=== PATIENT | female | born 1960 | race Caucasian/White ===

== ENCOUNTER 2023-08-16 02:49 | Emergency (ER) | payer MEDICARE, MEDICAID, SELFPAY ==
[2023-08-16 02:50] VITALS: BP 90/53; PULSE 71; RESP 16; TEMP 36.1; O2SAT 90; BMI 16.5
--- NOTE | 2023-08-16 03:24 | RAD_ITS ---
EXAM: XR LUMBOSACRAL SPINE, 2 OR 3 VIEWS CLINICAL INDICATION: pain pain TECHNIQUE: Frontal and lateral views of the lumbar spine and sacrum. COMPARISON: No relevant prior studies available. FINDINGS: VERTEBRAE: There is multilevel spondylosis. There are degenerative changes of the facet joints at the L3-4, L4-5, and L5-S1 levels. Preserved vertebral body height. No fracture. Preservation of the normal lumbar lordosis. DISC SPACES: There is disc space narrowing at each level of the spine with the exception of the L3-4 level.. GASTROINTESTINAL TRACT: Unremarkable as visualized. Included bowel gas pattern is non-obstructive. RAD/Lumbar Spine 2 or 3 Views IMPRESSION: 1. Multilevel degenerative changes. 2. No demonstrated fracture or subluxation. Electronically Signed: Oscar Hua MD at 6:06 EDT Reading Location ID and State: [facility] / [place] , Service support ,
--- NOTE | 2023-08-16 03:24 | CT_ITS ---
EXAM: CT HEAD WITHOUT INTRAVENOUS CONTRAST CLINICAL INDICATION: injury injury TECHNIQUE: Multiple axial images were obtained of the head without intravenous contrast. This CT exam was performed using one or more of the following dose reduction techniques: automated exposure control, adjustment of the mA and/or kV according to patient size, and/or use of iterative reconstruction technique. RADIATION DOSE: CTDIvol = 44.99 mGy, DLP = 796.11 mGy-cm COMPARISON: No relevant prior studies available. FINDINGS: BRAIN AND EXTRA-AXIAL SPACES: Unremarkable. No intra- or extra-axial hemorrhage. No evidence of acute infarct. No intracranial mass or mass effect. There is preservation of the cunningham/white matter interface. Posterior fossa structures are unremarkable. Ventricles are appropriate for age. No hydrocephalus. Basal cisterns are patent. BONES/JOINTS: Unremarkable. No discrete lytic or blastic abnormalities. VASCULATURE: There is atherosclerotic calcification of the cavernous carotid arteries. SINUSES: There is mild mucosal thickening in bilateral ethmoid and left sphenoid sinuses consistent with chronic disease. There is no evidence for acute sinusitis. MASTOID AIR CELLS: Unremarkable. Clear. ORBITS: Visualized globes, extraocular muscles, optic nerves and retrobulbar fat appear unremarkable. CT/Brain/Head without Contrast IMPRESSION: No demonstrated acute intracranial process. Electronically Signed: Oscar Hua MD at 5:55 EDT Reading Location ID and State: [facility] / [place] , Service support ,
--- NOTE | 2023-08-16 03:24 | CT_ITS ---
EXAM: CT CERVICAL SPINE WITHOUT INTRAVENOUS CONTRAST CLINICAL INDICATION: injury injury TECHNIQUE: Helically acquired images were obtained of the cervical spine without intravenous contrast. 2D reformatted images were reviewed. This CT exam was performed using one or more of the following dose reduction techniques: automated exposure control, adjustment of the mA and/or kV according to patient size, and/or use of iterative reconstruction technique. RADIATION DOSE: CTDIvol = 11.79 mGy, DLP = 281.86 mGy-cm COMPARISON: No relevant prior studies available. FINDINGS: VERTEBRAE: There is multilevel spondylosis. No fracture. No traumatic subluxation. No discrete lytic or blastic abnormality. Normal alignment. Normal craniocervical junction and cervicothoracic junction. DISCS/SPINAL CANAL/NEURAL FORAMINA: There are multilevel degenerative changes of the uncovertebral joints and apophyseal joints. There is multilevel disc space narrowing. C2-3: No demonstrated stenosis. C3-4: Broad posterior disc protrusion. There is mild spinal stenosis with central canal AP diameter of 9 mm. C4-5: Moderate stenosis bilateral neural foramina. C5-6: Small broad posterior disc osteophyte complex. No demonstrated spinal stenosis. Moderate stenosis right and severe stenosis left neural foramina. C6-7: No demonstrated stenosis. C7-T1: No demonstrated stenosis. SOFT TISSUES: Unremarkable. No prevertebral soft tissue swelling. LYMPH NODES: Unremarkable. No cervical adenopathy. LUNG APICES: Unremarkable as visualized. Clear. ESOPHAGUS: There is material within the cervical esophagus and visualized upper thoracic esophagus. This may represent dysmotility, reflux, or obstruction. CT/Spine Cervical without Contras IMPRESSION: 1. Multilevel degenerative changes. 2. No demonstrated fracture or subluxation. 3. Material within the visualized esophagus may be due to reflux, dysmotility, or distal obstruction. Electronically Signed: Oscar Hua MD at 6:04 EDT Reading Location ID and State: [facility] / [place] , Service support ,
--- NOTE | 2023-08-16 03:24 | RAD_ITS ---
EXAM: XR THORACIC SPINE, 3 VIEWS CLINICAL INDICATION: pain pain TECHNIQUE: Frontal, lateral and swimmer''s views of the thoracic spine. COMPARISON: No relevant prior studies available. FINDINGS: VERTEBRAE: There is multilevel spondylosis. Preserved vertebral body height. No fracture. Preservation of the normal thoracic kyphosis. No significant facet arthropathy. DISC SPACES: There is multilevel disc space narrowing. RAD/Thoracic Spine 3 Views IMPRESSION: 1. Degenerative changes. 2. No demonstrated fracture or subluxation. Electronically Signed: Oscar Hua MD at 6:11 EDT Reading Location ID and State: [facility] / [place] , Service support ,
[2023-08-16] MEDS: Morphine 4 MG/ML Syringe IV (03:51)
[2023-08-16] MEDS: Ondansetron 4 MG/2 ML Vial IV (03:51)
--- NOTE | 2023-08-16 04:15 | RAD_ITS ---
EXAM: XR PELVIS, 1 OR 2 VIEWS CLINICAL INDICATION: pain pain TECHNIQUE: Frontal view of the pelvis. COMPARISON: No relevant prior studies available. FINDINGS: BONES/JOINTS: There is a mild to moderate degenerative arthrosis of the hips, left greater than right. No displaced fracture. No destructive or sclerotic lesions. Note that overlapping bowel shadows may however obscure fine detail. Sacroiliac joints are unremarkable. No widening of the pubic symphysis. SOFT TISSUES: Unremarkable. No soft tissue swelling or gas. RAD/Pelvis 1 or 2 Views IMPRESSION: Degenerative arthrosis of the hips. No demonstrated fracture, dislocation, or destructive osseous lesion. Electronically Signed: Oscar Hua MD at 6:09 EDT Reading Location ID and State: [facility] / [place] , Service support ,
[2023-08-16 04:49] VITALS: BP 89/54; PULSE 71; RESP 16; O2SAT 99
[2023-08-16 06:00] VITALS: BP 98/62; PULSE 72; RESP 16; O2SAT 96
--- NOTE | 2023-08-16 06:18 | EDS_ITS ---
HPI History of Present Illness Chief Complaint: Fall Informant: patient and EMS Narrative Narrative: Patient is a 62-year-old female from home with past medical history of asthma and chronic back pain. She states that she went downstairs this evening to make a peanut butter and jelly sandwich and then as she was walking back up the stairs her legs gave out causing her to fall down the stairs and strike her head. She states she suffered transient LOC with this. She denies any history of bleeding disorder or blood thinner use. She reports pain in her head and throughout her back and with concern she may have sustained an injury she presents for evaluation. [facility] Medical History (Updated 08/17/23 @ 01:[address] Morteza Paige, DO) Back injury Asthma Home Medications ?Medication ?Instructions ?Recorded ?Last Taken ?Type oxycodone-acetaminophen 5 mg-325 1 tab PO Q6H PRN pain 3 days #12 08/16/23 Unknown Rx mg tablet (Percocet) tabs Allergy/AdvReac Type Severity Reaction Status Date / Time NSAIDS (Non-Steroidal Allergy Anaphylaxis Verified 08/16/23 02:55 Anti-Inflamma Penicillins (PCN) Allergy Anaphylaxis Verified 08/16/23 02:55 Social History Smoking Status: Current every day smoker tobacco type: cigarettes ROS ROS ED Constitutional Constitutional ED: Denies chills or fever(s) Eyes Eyes: Denies blurry vision, change in vision or diplopia ENT ENT ED: Denies sore throat Cardiovascular Cardiovascular: Denies chest pain, palpitations or racing heartbeat Respiratory/Chest Respiratory/Chest: Denies cough or dyspnea Gastrointestinal Gastrointestinal: Denies abdominal pain, diarrhea, nausea or vomiting Genitourinary Genitourinary ED: Denies dysuria or hematuria Musculoskeletal Musculoskeletal: Reports back pain and neck pain Integumentary Reports Abrasions; Denies rash Neurologic Neurologic: Reports headache(s) and other Details: Positive LOC Hematologic/Lymphatic Hematologic/Lymphatic: Denies easy bleeding or easy bruising EXAM Physical Exam Const Vital Signs: 08/16/23 02:50 08/16/23 02:56 08/16/23 04:49 Temperature 97 F L Temperature Source Temporal Pulse Rate 71 71 Respiratory Rate 16 16 Respiratory Effort Normal Blood Pressure 90/53 L 89/54 L Blood Pressure Mean 65 65 Pulse Ox 90 99 Oxygen Delivery Method Room Air Nasal Cannula Oxygen Flow Rate (L/min) 2 08/16/23 06:00 08/16/23 06:35 Temperature 97 F L Temperature Source Pulse Rate 72 75 Respiratory Rate 16 16 Respiratory Effort Blood Pressure 98/62 94/52 L Blood Pressure Mean 74 66 Pulse Ox 96 96 Oxygen Delivery Method Room Air Oxygen Flow Rate (L/min) Positive well nourished and well developed General Appearance ED: well developed HEENT HEENT Narrative: Patient has a 2 x 3 hematoma to the occipital portion of the scalp consistent with fall/head injury. No sustained laceration. No signs of depressed or basilar skull fracture. No septal hematoma Eyes PERRL and EOMs intact bilaterally Eyes Narrative: No hyphema Neck supple Neck Narrative: No bony deformity or step-off of the cervical spine however there is mild midline tenderness to palpation Chest Wall palpation of chest normal Chest Narrative: No bony deformity or crepitance of the chest wall Resp normal respiratory effort Resp Narrative: Breath sounds are diminished throughout with faint expiratory wheeze consistent with history of asthma but otherwise no signs of respiratory distress Cardio regular rate and regular rhythm GI non-tender, non-distended and no masses GI Narrative: Abdomen is soft nontender and nondistended with hypoactive bowel sounds There is no bruising across the abdomen No voluntary guarding or rigidity or pulsatile mass Auscultation: hypoactive bowel sounds Palpation: soft Back/Spine Back/Spine Narrative: No bony deformity or step-off of the thoracic or lumbar spine the patient does have diffuse midline pain with palpation to both the thoracic and lumbar region No saddle anesthesia. Negative straight leg raise. No clonus or Babinski. Patellar reflexes are plus 1 out of 4 bilaterally Extremity Extremity Narrative: Pelvis is stable there is no shortening or external rotation of either lower extremity No obvious bony deformity or joint effusions noted Patient has full active range of motion of both upper and lower extremities. Neuro oriented x3, CN's II-XII intact bilaterally and no sensory deficits noted Sensorium / Orientation: alert Motor Exam: strength 5/5 throughout Psych mental status grossly normal Skin Skin Narrative: Hematoma to the occipital scalp as documented above otherwise no abrasions or lacerations noted MDM MDM MDM Narrative Medical decision making narrative: Patient presented to the ER awake and alert with normal neurologic exam. She reported a mechanical fall and therefore there is no need for cardiac or syncope workup. As she did strike her head and has a hematoma in the occipital region there is concern for skull fracture versus subdural or epidural hematoma. Pain throughout the cervical thoracic and lumbar spine there is concern for compression fracture versus spinal thesis and therefore CTs and x-rays will be obtained. Secondary to the fall a pelvis x-ray will be ordered as well as there is concern for pubic rami fracture. All imaging revealed no signs of acute trauma. Therefore at this time as patient has a negative workup secondary to her fall/trauma and it was mechanical in nature and there is no need for laboratory studies to assess for potential acute blood loss or electrolyte abnor mality or cardiac dysfunction she is otherwise safe for discharge History & Record Review Discussion w/independent historian: EMS personnel and Patient Radiography Diagnostic Testing: Clinical Impression(s) from Imaging Studies Brain CT 08/16/23 03:24 IMPRESSION: No demonstrated acute intracranial process. Electronically Signed: Oscar Hua MD at 5:55 EDT , Cervical Spine CT 08/16/23 03:24 IMPRESSION: 1. Multilevel degenerative changes. 2. No demonstrated fracture or subluxation. 3. Material within the visualized esophagus may be due to reflux, dysmotility, or distal obstruction. Electronically Signed: Oscar Hua MD at 6:04 EDT , Lumbar Spine X-Ray 08/16/23 03:24 IMPRESSION: 1. Multilevel degenerative changes. 2. No demonstrated fracture or subluxation. Electronically Signed: Oscar Hua MD at 6:06 EDT , Thoracic Spine X-Ray 08/16/23 03:24 IMPRESSION: 1. Degenerative changes. 2. No demonstrated fracture or subluxation. Electronically Signed: Oscar Hua MD at 6:11 EDT , Pelvis X-Ray 08/16/23 04:15 IMPRESSION: Degenerative arthrosis of the hips. No demonstrated fracture, dislocation, or destructive osseous lesion. Electronically Signed: Oscar Hua MD at 6:09 EDT , 1 view pelvis x-ray as interpreted by the emergency medicine physician reveals arthritic changes without acute fracture or dislocation X-ray of the thoracic and lumbar spine as interpreted by the emergency medicine physician reveals multilevel degenerative changes without compression fracture or spondylolisthesis Discharge Plan Triage Chief Complaint: Fall ED Provider: Morteza Paige Dx/Rx/DC Orders Clinical Impression: Closed head injury, Hematoma of occipital region of scalp, Contusion of multiple sites, Asthma Instructions: ED Soft Tissue Contusion, ED Head Injury (Adult), ED Hematoma Prescriptions: New oxycodone-acetaminophen [Percocet] 5-325 mg tablet 1 tab PO Q6H PRN (Reason: pain) 3 Days Qty: 12 0RF Primary Care Provider: ROLO MONROE Referrals: ROLO MONROE [Other] Activity Restrictions/Additional Instructions: Your CT scans and x-rays revealed no signs of brain bleed broken neck or broken bones indicating you have multiple contusions. Take the prescribed medication to help control pain and ice and/or heat the areas to help reduce pain and speed healing. Return to the ER should you have any further concerns Print Language: Bulgarian Disposition Disposition: Home, Self Care Discharge Date/Time: 08/16/23 07:51
[2023-08-16 06:35] VITALS: BP 94/52; PULSE 75; RESP 16; TEMP 36.1; O2SAT 96
--- NOTE | 2023-08-16 06:35 | ED.RN ---
Patient reports she cannot ambulate without her cane or rollator and she doesn't have any family or friends that can transport her. [facility] call for wheelchair transport due to not having assistive devices.
--- NOTE | 2023-08-16 06:36 | NURSING ---
CALLED [facility], ETA IS WITHIN THE HOUR
[2023-08-16] MEDS: oxyCODONE 5 MG Tablet PO (06:38)
== END 2023-08-16 07:51 | disposition home or self-care (01) ==
PROVIDERS: Emergency Provider Emergency Medicine; Visit Provider Emergency Medicine
DX: S00.03XA Contusion of scalp, initial encounter (principal); J45.909 Unspecified asthma, uncomplicated; F17.210 Nicotine dependence, cigarettes, uncomplicated; W10.9XXA Fall (on) (from) unspecified stairs and steps, initial encounter; S09.90XA Unspecified injury of head, initial encounter; T14.8XXA Other injury of unspecified body region, initial encounter
CPT/HCPCS: 70450; 72072; 72100; 72125; 72170; 96374; 96375; 99283; A4216; J2405

== ENCOUNTER 2023-11-19 23:13 | Observation (INO) | payer MEDICARE, MEDICAID, SELFPAY ==
[2023-11-19 23:14] VITALS: BP 105/62; PULSE 95; RESP 18; TEMP 37.1; O2SAT 98; BMI 16.4
--- NOTE | 2023-11-19 23:50 | EKG12_ITS ---
Test Reason : FALL Blood Pressure : / mmHG Vent. Rate : 075 BPM Atrial Rate : 075 BPM P-R Int : 136 ms QRS Dur : 092 ms QT Int : 422 ms P-R-T Axes : 081 086 068 degrees QTc Int : 471 ms Normal sinus rhythm Normal ECG Confirmed by TANNA CALHOUN, KOJO ([id number]), assistant editor MARY MUÑIZ ([id number]) on 11/23/2023 7:28:31 AM Referred By: Confirmed By:KOJO CISSE MD
[2023-11-20] VITALS (14 sets, daily range): BP systolic 79–107; BP diastolic 52–61; PULSE 63–77; RESP 12–20; TEMP 36.5–37.2; O2SAT 85–100; BMI 15.4
[2023-11-20] MEDS: Ondansetron 4 MG/2 ML Vial IV
[2023-11-20] MEDS: 0.9% Normal Saline (1000mL) 1,000 ML 999 ML IV
--- NOTE | 2023-11-20 00:26 | ED.VIS.FALL ---
HPI HPI - Fall History of Present Illness Chief Complaint: Fall Narrative Narrative: Patient is a 63-year-old female past medical history of asthma, chronic back pain, hypercholesteremia, hypothyroidism who presented to the emergency department with a chief complaint of falling down approximately 7 stairs. States that the past 3 days she has had dizziness and she states that she was dizzy right before she fell. Patient states that she does not have a history of vertigo and has not had any think this happened in the past. Patient states that she did hit her head but states that she did not pass out she remembers the entire event. States that she has having increasing back pain from her chronic back pain but denies any other new pain. [facility] Medical History Back injury Asthma Home Medications ?Medication ?Instructions ?Recorded ?Last Taken ?Type oxycodone-acetaminophen 5 mg-325 1 tab PO Q6H PRN pain 3 days #12 08/16/23 Unknown Rx mg tablet (Percocet) tabs atorvastatin 20 mg tablet 20 mg PO DAILY 11/19/23 Unknown History azelastine 137 mcg (0.1 %) nasal 1 spray intranasal BID 11/19/23 Unknown History spray clonazepam 2 mg tablet 2 mg PO TID PRN PRN anxiety 11/19/23 Unknown History epinephrine 0.3 mg/0.3 mL IM PRN PRN anaphylaxis 11/19/23 Unknown History injection, auto-injector ergocalciferol (vitamin D2) 1,250 1,250 mcg PO QWEEK 11/19/23 Unknown History mcg (50,000 unit) capsule escitalopram oxalate 20 mg tablet 20 mg PO DAILY 11/19/23 Unknown History gabapentin 400 mg capsule 400 mg PO TID 11/19/23 Unknown History levothyroxine 88 mcg tablet 88 mcg PO DAILY 11/19/23 Unknown History mirtazapine 30 mg tablet 30 mg PO QHS 11/19/23 Unknown History multivitamin-iron sulfate 15 1 tab PO DAILY 11/19/23 Unknown History mg-folic acid 400 mcg tablet (Tab-A-Massiel Multivitamin w-iron) omega-3 acid ethyl esters 1 gram 1 cap PO DAILY 11/19/23 Unknown History capsule oxycodone 40 mg tablet,extended 40 mg PO TID 11/19/23 Unknown History release,12 hr pantoprazole 40 mg tablet,delayed 40 mg PO DAILY 11/19/23 Unknown History release zolpidem 5 mg tablet 5 mg PO QHS insomnia 11/19/23 Unknown History Allergy/AdvReac Type Severity Reaction Status Date / Time NSAIDS (Non-Steroidal Allergy Anaphylaxis Verified 11/19/23 23:14 Anti-Inflamma Penicillins (PCN) Allergy Anaphylaxis Verified 11/19/23 23:14 Social History Smoking Status: Current every day smoker tobacco type: cigarettes ROS ROS ED ROS Narrative Constitutional: Complains of dizziness as noted above denies headache, lightheadedness Eyes: Denies double vision blurry vision change in vision Cardiovascular: Denies chest pain or palpitations Respiratory: Denies coughing wheezing shortness of breath Abdomen: Denies abdominal pain nausea vomit diarrhea : Denies any urinary symptoms Neurological: Denies numbness, weakness, tingling Musculoskeletal: Complains of back pain as noted above Skin: Denies rashes or lesions EXAM Physical Exam Narrative Exam Narrative: General: Patient lying in bed rest comfortably did not appear to be in acute distress Head: Atraumatic, normocephalic Eyes: PERRL bilateral, EOMI bilaterally, no conjunctival injection noted, no vertical or horizontal nystagmus noted on exam Neck: Soft, supple, trachea midline, no midline tenderness to palpation of the cervical spine Cardiovascular: Regular rate and rhythm no murmurs gallops rubs noted Respiratory: Clear to auscultation bilaterally no rales rhonchi or wheezes noted Abdomen: Soft, nondistended, nontender to palpation, bowel sounds present x 4 Musculoskeletal: Patient had some tenderness palpation in the right wrist, elbow and near her right shoulder she states that she has a bad shoulder from a rotator cuff tear. All of the bony prominences palpated and joints taken through full range of motion no pain elicited Extremities: Patient has bilateral lower extremity weakness unable to lift either her legs off the bed secondary to her back pain she states DP pulses +2/4 in the bilateral extremities, radial pulses +2/4 in the bilateral upper extremities Neurological: Patient following commands knew that she was at [facility] the year is 2023. Sensation grossly intact Skin: Warm, dry, intact Const Vital Signs: 11/19/23 23:14 11/19/23 23:14 11/20/23 01:14 Temperature 98.8 F Temperature Source Oral Pulse Rate 95 77 Respiratory Rate 18 12 Respiratory Effort Normal Non-Labored Respiratory Depth Normal Respiratory Pattern Normal Blood Pressure 105/62 90/61 Blood Pressure Mean 76 70 Pulse Ox 98 96 Oxygen Delivery Method Room Air Room Air 11/20/23 02:22 Temperature 98.5 F Temperature Source Pulse Rate 75 Respiratory Rate 18 Respiratory Effort Respiratory Depth Respiratory Pattern Blood Pressure 103/57 L Blood Pressure Mean 72 Pulse Ox 97 Oxygen Delivery Method MDM MDM MDM Narrative Medical decision making narrative: Patient is a 63-year-old female who presented to the emergency department with a chief complaint of fall down multiple stairs. Patient will have a workup performed here on the differential diagnose includes but limited to thoracic spine fracture, lumbar fracture, intracranial hemorrhage, vertigo, stroke, electrolyte abnormality. Once workup is obtained reviewed she will be reevaluated. Patient be given IV fluids for hydration. Patient CBC reviewed and showed no evidence leukocytosis white blood count normal at 9.4, hemoglobin stable at 12.5, platelet count normal at 293. Patient's sodium noted to be normal at 143, potassium was low at 3.2 she will be given 40 mill equivalents of potassium supplementation, AST and ALT were 25 and 28 respectively. Patient's drug screen positive for opiates and cannabis. Patient CT head and brain without contrast reviewed showed no acute intracranial hemorrhage. Patient CT cervical spine reviewed and showed no acute cervical spine injuries degenerative changes noted. Patient's CT chest abdomen pelvis with IV contrast reviewed and showed patchy multilobar airspace disease in the right upper middle and lower lobes could indicate pneumonia or pulmonary contusions. Patient does have a cough with increase sputum production we will treat her for pneumonia given her penicillin allergy of anaphylaxis we will treat her with Levaquin. No other acute findings in the chest abdomen or pelvis. Patient's x-rays of her forearm wrist and shoulder were reviewed by myself and by radiology which showed no acute fracture dislocation of the wrist, shoulder or forearm. At this point time do believe the patient warrants admission for her 3 days of dizziness, coughing concern for pneumonia as well as her generalized weakness. Will discuss case with hospitalist. Discussed case with hospitalist Dr. Cali who accept patient for admission. Patient notified with and is requesting more pain medication which will be ordered. All question concerns answered at bedside. Lab Data Labs: Laboratory Results - last 24 hr 11/19/23 11/19/23 11/20/23 00:54 23:58 00:54 WBC 9.4 RBC 3.96 L Hgb 12.5 Hct 38.0 MCV 96.0 MCH 31.6 MCHC 32.9 RDW Std Deviation 46.3 H RDW Coeff of Poonam 13.1 Plt Count 293 MPV 9.8 Immature Gran % (Auto) 1.300 H Neut % (Auto) 63.5 Lymph % (Auto) 27.4 [place] % (Auto) 5.0 Eos % (Auto) 2.5 Baso % (Auto) 0.3 Absolute Neuts (auto) 6.0 Absolute Lymphs (auto) 2.57 Nucleated RBC % 0 PT 13.4 INR 1.0 APTT 30.1 Sodium 143 Potassium 3.2 L Chloride 107 Carbon Dioxide 30.0 Anion Gap 6 BUN 11 Creatinine 0.49 L Estim Creat Clear Calc 80.36 Est GFR (MDRD) Af Amer 164 Est GFR (MDRD) Non-Af 136 BUN/Creatinine Ratio 22.5 H Glucose 69 L Calcium 9.0 Total Bilirubin 0.20 Direct Bilirubin 0.12 AST 25 ALT 28 Alkaline Phosphatase 113 Total Protein 6.6 Albumin 3.2 Globulin 3.4 Urine Color Yellow Urine Clarity Clear Urine pH 6.5 Ur Specific [place] 1.005 Urine Protein Negative Urine Glucose (UA) Normal Urine Ketones Negative Urine Occult Blood Negative Urine Nitrite Negative Urine Bilirubin Negative Urine Urobilinogen Normal Ur Leukocyte Esterase Negative Urine RBC 0 SEEN Urine WBC 0 SEEN Ur Squamous Epith Cells 0-5 SEEN Urine Bacteria RARE Urine Mucus 0 SEEN Urine Opiates Screen POSITIVE H Urine Methadone Screen NEGATIVE Ur Barbiturates Screen NEGATIVE Ur Phencyclidine Scrn NEGATIVE Ur Amphetamines Screen NEGATIVE MDMA (Ecstasy) Screen NEGATIVE U Benzodiazepines Scrn NEGATIVE Urine Cocaine Screen NEGATIVE U Cannabinoids Screen POSITIVE H Ur Drug Screen Comment Radiography Diagnostic Testing: Clinical Impression(s) from Imaging Studies Forearm X-Ray 11/20/23 00:27 IMPRESSION: Negative right forearm x-rays. Electronically Signed: Mitch Dietz MD at 1:03 EDT Reading Location ID and State: [facility] / [place] Tel , Service support , Shoulder X-Ray 11/20/23 00:27 IMPRESSION: No acute findings in the right shoulder. Electronically Signed: Mitch Dietz MD at 1:02 EDT , Wrist X-Ray 11/20/23 00:27 IMPRESSION: No acute findings in the right wrist. Electronically Signed: Mitch Dietz MD at 1:02 EDT , Discharge Plan Triage Chief Complaint: Fall ED Provider: Karri Mckee Dx/Rx/DC Orders Clinical Impression: Fall, Pneumonia, Generalized weakness Primary Care Provider: ROLO MONROE
--- NOTE | 2023-11-20 00:27 | RAD_ITS ---
EXAM: XR RIGHT FOREARM, 2 VIEWS CLINICAL INDICATION: FALL TECHNIQUE: Frontal and lateral views of the right forearm. COMPARISON: No relevant prior studies available. FINDINGS: BONES/JOINTS: Unremarkable. No acute fracture. No dislocation. SOFT TISSUES: Unremarkable. RAD/Forearm 2 Views IMPRESSION: Negative right forearm x-rays. Electronically Signed: Mitch Dietz MD at 1:03 EDT ,
--- NOTE | 2023-11-20 00:27 | RAD_ITS ---
EXAM: XR RIGHT WRIST COMPLETE, 3 OR MORE VIEWS CLINICAL INDICATION: FALL TECHNIQUE: Frontal, lateral and oblique views of the right wrist. COMPARISON: No relevant prior studies available. FINDINGS: BONES/JOINTS: Degenerative changes of the radiocarpal joint. No acute fracture. No subluxation. Normal alignment. No sclerotic or destructive changes observed. SOFT TISSUES: Unremarkable. No soft tissue swelling or gas. No radiopaque foreign body. RAD/Wrist min 3 Views IMPRESSION: No acute findings in the right wrist. Electronically Signed: Mitch Dietz MD at 1:02 EDT ,
--- NOTE | 2023-11-20 00:27 | RAD_ITS ---
EXAM: XR RIGHT SHOULDER COMPLETE, 2 OR MORE VIEWS CLINICAL INDICATION: FALL TECHNIQUE: Two or more views of the right shoulder. COMPARISON: No relevant prior studies available. FINDINGS: BONES/JOINTS: Moderate degenerative changes of the glenohumeral joint. No acute fracture. No subluxation. Normal alignment. No sclerotic or destructive changes observed. SOFT TISSUES: Unremarkable. No soft tissue swelling or gas. No radiopaque foreign body. RAD/Shoulder min 2 Views IMPRESSION: No acute findings in the right shoulder. Electronically Signed: Mitch Dietz MD at 1:02 EDT ,
[2023-11-20 00:28] LABS: AST(SGOT) 25 U/L (15-37); Alanine Aminotransfer ALT/SGPT 28 U/L (13-56); Albumin, Serum 3.2 g/dL (3.2-5.0); Alkaline Phosphatase 113 U/L (45-117); Anion Gap 6 (5-15); BUN 11 mg/dL (7-18); BUN/Creat Ratio 22.5 RATIO (10-20); Bilirubin, Direct 0.12 mg/dL (0.00-0.30); Chloride 107 mmol/L (98-107); Creatinine, Serum 0.49 mg/dL (0.55-1.02); EST Glomerular Filtration Rate 136 mL/min (>60); Est Glom Filt Rate - Afr Amer 164 mL/min (>60); Estimated Creatinine Clearance 80.36 ml/min; Globulin 3.4 g/dL (2.2-4.2); Glucose 69 mg/dL (74-106); Potassium 3.2 mmol/L (3.5-5.1); Protein, Total 6.6 g/dL (6.4-8.2); Sodium Level 143 mmol/L (136-145)
[2023-11-20 00:29] LABS: Absolute Lymphocyte Count 2.57 X10^3/uL (0.83-4.51); Basophil# 0.03 X10^3/uL; Basophil% 0.3 % (0-1); Eosinophil# 0.23 X10^3/uL; Eosinophils% 2.5 % (0-5); Hemoglobin 12.5 g/dL (12.0-15.0); Lymphocyte # 2.57 X10^3/ul (0.83-4.51); Lymphocyte % 27.4 % (19-41); Mean Corp Hgb Conc 32.9 g/dL (32-36); Mean Corpuscular Hgb 31.6 pg (27.0-32.0); Mean Platelet Vol. 9.8 fl (6.2-12.0); Monocyte# 0.47 X10^3/uL; NRBC Flagged by Analyzer 0 % (0-5); Neutrophil # 5.95 X10^3/uL (2.7-7.7); Neutrophil % 63.5 % (47-70); Platelet Count 293 K/mm3 (150-450); RBC Distribution Width CV 13.1 % (11.6-14.6); RBC Distribution Width SD 46.3 fl (35.1-43.9); Red Blood Count 3.96 M/mm3 (4.2-5.4); White Blood Count 9.4 K/mm3 (4.4-11.0)
[2023-11-20 00:34] LABS: Partial Thromboplast Time 30.1 Seconds (24.1-36.2)
[2023-11-20 01:05] LABS: Vista UDS pH Range 6
[2023-11-20 01:18] LABS: Amphetamine Urine NEGATIVE (<1000 ng/mL); Barbiturate Urine NEGATIVE (< 200 ng/mL); Benzodiazepine Urine NEGATIVE (< 200 ng/mL); Cocaine Urine NEGATIVE (< 300 ng/mL); Ecstacy Urine NEGATIVE (< 500 ng/mL); Methadone Urine NEGATIVE (< 300 ng/mL); Opiates Urine POSITIVE (< 300 ng/mL); PCP Urine NEGATIVE (< 25 ng/mL); THC Urine POSITIVE (< 50 ng/mL)
[2023-11-20 01:30] LABS: Mucous, Urine 0 SEEN /hpf (<or=2+); Red Blood Cells-Urine 0 SEEN /hpf (0-5); White Blood Cells 0 SEEN /hpf (0-5)
[2023-11-20 01:31] LABS: Color, Urine Yellow (Yellow); Glucose, Dipstick Normal (Normal); Ketone-Dipstick Negative (Negative); Leukocyte Esterase-Dipstick Negative /ul (Negative); Nitrite-Dipstick Negative (Negative); Occult Blood-Urine Negative /ul (Negative); Protein-Dipstick Negative (Negative); Specific Gravity, Urine 1.005 (1.002-1.030); Urine Bilirubin Dipstick Negative (Negative); Urine Clarity Clear (Clear); Urine Urobilinogen Normal (Normal); Urine pH 6.5 (5.0 - 8.0)
[2023-11-20 01:45] LABS: Prothrombin Time (Protime)PT. 13.4 SECONDS (11.7-14.9)
[2023-11-20 01:57] LABS: Bacteria RARE /hpf (None Seen); Squamous Epithelial Cells - UA 0-5 SEEN /hpf (5-10)
--- NOTE | 2023-11-20 02:15 | HP.PCM.HOS_ITS ---
HPI - General General Date of Admission: 11/20/23 Date of Service: 11/20/23 Chief Complaint: Dizziness with Fall Down 7 Stairs. HPI Narrative PRISCILLA ARELLANO, is a 63 F with a past medical history of hyperlipidemia, hypothyroidism, chronic tobacco abuse, history of asthma, GERD, OA; with chronic back pain syndrome on prn oxycodone and gabapentin, depression with anxiety; on escitalopram and prn clonazepam, chronic insomnia; on scheduled zolpidem and listed allergy to PCN and NSAID's (anaphylaxis) who presents to [facility] ER complaining of dizziness with fall down 7 stairs. Ms. Arellano reports her symptoms began approximately three days prior to admission with near constant dizziness with a flare of dizziness occurring before her her fall with patient admitting to hitting her head - but she denies LOC associated with her fall. She denies a history of vertigo or similar previous episodes. She admits to an increase in her chronic back pain but she denies other new significant pain or other recent illness. There was no report of related fever, chills, nausea, vomiting, diarrhea, constipation, headache or visual changes but she does admit to chest pain and SOB that have been persistent since her fall along with poor appetite due to increased life stress because she must move out of a place she recently moved into because her 2 roommates lost their jobs. In the ER she was noted to have a CT scan of the chest/abdomen/pelvis that revealed patchy multilobar airspace disease in the Right upper, Right middle and Right lower lobes consistent with pneumonia and/or pulmonary contusions with no other acute pathologic changes noted after Fall down 7 steps likely due at least in part to Polypharmacy; with UDS positive for opiates and benzodiazepines in an older patient who is at increasing risk for adverse drug effects suspected to be the underlying cause for her persistent dizziness complicated by laboratory evidence of Hypoglycemia of 69 mg/dL present on admission and Hypokalemia of 3.2 mmol/L present on admission and she was then admitted to the PCU for ongoing care for a stay that is expected to extend beyond 48 hours. [facility] Medical History Back injury Asthma Home Medications ?Medication ?Instructions ?Recorded ?Last Taken ?Type atorvastatin 20 mg tablet 20 mg PO DAILY 11/19/23 Unknown History azelastine 137 mcg (0.1 %) nasal 1 spray intranasal BID 11/19/23 Unknown History spray clonazepam 2 mg tablet 2 mg PO TID PRN PRN anxiety 11/19/23 Unknown History epinephrine 0.3 mg/0.3 mL IM PRN PRN anaphylaxis 11/19/23 Unknown History injection, auto-injector ergocalciferol (vitamin D2) 1,250 1,250 mcg PO QWEEK 11/19/23 Unknown History mcg (50,000 unit) capsule escitalopram oxalate 20 mg tablet 20 mg PO DAILY 11/19/23 Unknown History gabapentin 400 mg capsule 400 mg PO TID 11/19/23 Unknown History levothyroxine 88 mcg tablet 88 mcg PO DAILY 11/19/23 Unknown History mirtazapine 30 mg tablet 30 mg PO QHS 11/19/23 Unknown History multivitamin-iron sulfate 15 1 tab PO DAILY 11/19/23 Unknown History mg-folic acid 400 mcg tablet (Tab-A-Massiel Multivitamin w-iron) omega-3 acid ethyl esters 1 gram 1 cap PO DAILY 11/19/23 Unknown History capsule pantoprazole 40 mg tablet,delayed 40 mg PO DAILY 11/19/23 Unknown History release zolpidem 5 mg tablet 5 mg PO QHS insomnia 11/19/23 Unknown History oxycodone 40 mg tablet,crush 40 mg PO BID PRN pain 11/20/23 Unknown History resistant,extended release 12 hr (OxyContin) oxycodone 5 mg tablet 5 mg PO Q8H PRN PRN pain 11/20/23 Unknown History Allergy/AdvReac Type Severity Reaction Status Date / Time NSAIDS (Non-Steroidal Allergy Anaphylaxis Verified 11/19/23 23:14 Anti-Inflamma Penicillins (PCN) Allergy Anaphylaxis Verified 11/19/23 23:14 Social History Smoking Status: Current every day smoker tobacco type: cigarettes ROS ROS Narrative Review of Systems: Constitutional: Patient denies fever or chills. Eyes: Patient denies changes in vision or discharge from eyes. ENT: Patient denies runny nose, sore throat or ear pain. Resp: Patient denies SOB or cough. CV: Patient denies chest pain, palpitations or heart racing. GI: Patient denies abdominal pain, nausea, vomiting, diarrhea or constipation. : Patient denies dysuria or hematuria. MSK: Patient admits to an acute worsening of her back pain since her fall. Skin: Patient denies rash, abscess or jaundice. Psych: Patient denies symptoms of uncontrolled depression or anxiety. Neuro: Patient admits to dizziness but she denies headache, paresthesias or focal neurologic deficits. Allergy: Patient denies lip swelling, tongue swelling or urticaria. Hematology: Patient denies easy bleeding or easy bruisability. Endocrinology: Patient denies polyuria, polydipsia and polyphagia. 14 point ROS otherwise negative except for positives noted above in HPI. Vital Signs Vital Signs Vital Signs: 11/19/23 23:14 11/19/23 23:14 11/20/23 01:14 Temperature 98.8 F Temperature Source Oral Pulse Rate 95 77 Respiratory Rate 18 12 Respiratory Effort Normal Non-Labored Respiratory Depth Normal Respiratory Pattern Normal Blood Pressure 105/62 90/61 Blood Pressure Mean 76 70 Pulse Ox 98 96 Oxygen Delivery Method Room Air Room Air Weight Weight: 95 lb 8 oz Body Mass Index (BMI) 16.4 Physical Exam Const alert, oriented x3, no apparent distress and average body habitus General Appearance: cooperative HEENT normocephalic, head/scalp atraumatic, hearing grossly normal bilaterally and moist oral mucous membranes Eyes PERRL and EOMs intact bilaterally Neck no lymphadenopathy and supple Resp normal respiratory effort, no retractions and no use of accessory muscles Resp Narrative: Diminished breath sounds over Right. Cardio regular rate and regular rhythm GI normal to inspection, nondistended, normoactive bowel sounds, soft to palpation, non-tender and non-distended Extremity Extremity Narrative: Patient is unable to lift her legs off the bed due to back pain. Skin Skin Narrative: Patient has no evidence of rash, abscess or jaundice. Neuro oriented x3, CN's II-XII intact bilaterally, moves all extremities and no focal motor deficits Sensorium / Orientation: awake, alert, oriented to person, oriented to place and oriented to time Speech: speech normal Psych affect normal Results Medical Records Data Attestation: I reviewed the patient's medical records Lab / Micro Data Attestation: I reviewed the patient's lab results. 11/19/23 23:58 11/19/23 23:58 Labs: Laboratory Results - last 24 hr 11/19/23 00:54: Urine Color Yellow, Urine Clarity Clear, Urine pH 6.5, Ur Specific [place] 1.005, Urine Protein Negative, Urine Glucose (UA) Normal, Urine Ketones Negative, Urine Occult Blood Negative, Urine Nitrite Negative, Urine Bilirubin Negative, Urine Urobilinogen Normal, Ur Leukocyte Esterase Negative, Urine RBC 0 SEEN, Urine WBC 0 SEEN, Ur Squamous Epith Cells 0-5 SEEN, Urine Bacteria RARE, Urine Mucus 0 SEEN 11/19/23 23:58: WBC 9.4, RBC 3.96 L, Hgb 12.5, Hct 38.0, MCV 96.0, MCH 31.6, MCHC 32.9, RDW Std Deviation 46.3 H, RDW Coeff of Poonam 13.1, Plt Count 293, MPV 9.8, Immature Gran % (Auto) 1.300 H, Neut % (Auto) 63.5, Lymph % (Auto) 27.4, [place] % (Auto) 5.0, Eos % (Auto) 2.5, Baso % (Auto) 0.3, Absolute Neuts (auto) 6.0, Absolute Lymphs (auto) 2.57, Nucleated RBC % 0, PT 13.4, INR 1.0, APTT 30.1, Sodium 143, Potassium 3.2 L, Chloride 107, Carbon Dioxide 30.0, Anion Gap 6, BUN 11, Creatinine 0.49 L, Estim Creat Clear Calc 80.36, Est GFR (MDRD) Af Amer 164, Est GFR (MDRD) Non-Af 136, BUN/Creatinine Ratio 22.5 H, Glucose 69 L, Calcium 9.0, Total Bilirubin 0.20, Direct Bilirubin 0.12, AST 25, ALT 28, Alkaline Phosphatase 113, Total Protein 6.6, Albumin 3.2, Globulin 3.4 11/20/23 00:54: Urine Opiates Screen POSITIVE H, Urine Methadone Screen NEGATIVE, Ur Barbiturates Screen NEGATIVE, Ur Phencyclidine Scrn NEGATIVE, Ur Amphetamines Screen NEGATIVE, MDMA (Ecstasy) Screen NEGATIVE, U Benzodiazepines Scrn NEGATIVE, Urine Cocaine Screen NEGATIVE, U Cannabinoids Screen POSITIVE H, Ur Drug Screen Comment Micro: Microbiology 11/19/23 23:56 Mucosa - Nose SARS-CoV-2, Influenza & RSV (PCR) - Final Imaging Radiology Impression Forearm X-Ray 11/20/23 00:27 IMPRESSION: Negative right forearm x-rays. Electronically Signed: Mitch Dietz MD at 1:03 EDT Reading Location ID and State: [address] [place] [address] Tel , Service support , Shoulder X-Ray 11/20/23 00:27 IMPRESSION: No acute findings in the right shoulder. Electronically Signed: Mitch Dietz MD at 1:02 EDT Reading Location ID and State: [address] [place] [address] Tel , Service support , Wrist X-Ray 11/20/23 00:27 IMPRESSION: No acute findings in the right wrist. Electronically Signed: Mitch Dietz MD at 1:02 EDT Reading Location ID and State: [address] [place] [address] Tel , Service support , Brain CT 11/20/23 23:51 IMPRESSION: Negative head/brain CT without intravenous contrast. Electronically Signed: Mitch Dietz MD at 1:00 EDT Reading Location ID and State: [address] [place] [address] Tel , Service support , Cervical Spine CT 11/20/23 23:51 IMPRESSION: 1. No acute injuries identified involving the cervical spine. 2. Degenerative changes. Electronically Signed: Mitch Dietz MD at 1:01 EDT Reading Location ID and State: [facility] / [place] Tel , Service support , Chest/Abdomen/Pelvis CT 11/20/23 23:51 IMPRESSION: 1. Patchy multilobar airspace disease in the right upper, right middle and right lower lobes. Findings could indicate pneumonia or pulmonary contusions. 2. No other acute abnormalities identified in the chest abdomen or pelvis. Electronically Signed: Mitch Dietz MD at 1:21 EDT , Assessment & Plan Assessment/Plan (1) Pneumonia: QUALIFIERS: Laterality: right Lung location: unspecified part of lung Pneumonia type: due to unspecified organism Qualified Code(s): J18.9 - Pneumonia, unspecified organism (2) Right pulmonary contusion: QUALIFIERS: Encounter type: initial encounter Qualified Code(s): S27.321A - Contusion of lung, unilateral, initial encounter (3) Fall: QUALIFIERS: Encounter type: initial encounter Qualified Code(s): W19.XXXA - Unspecified fall, initial encounter (4) Generalized weakness: (5) Hypoglycemia: (6) Hypokalemia: (7) Chronic pain syndrome: (8) Polypharmacy: PLAN: Plan 1. CT scan of the chest/abdomen/pelvis that revealed patchy multilobar airspace disease in the Right upper, Right middle and Right lower lobes consistent with pneumonia and/or pulmonary contusions with no other acute pathologic changes noted - Admit to PCU. Start empiric antibiotics in case of evolving pneumonia with IV Levaquin and await culture and sensitivity data. Give Tylenol prn pain or fever. 2. Fall down 7 steps with subsequent Generalized Weakness likely due at least in part to Polypharmacy; with UDS positive for opiates and benzodiazepines in an older patient who is at increasing risk for adverse drug effects suspected to be the underlying cause for her persistent dizziness complicating #1 - Minimize opiates and benzodiazepines to see if her symptoms improve with her prn oxycodone dose cute by 50% and her long-acting opiate cut by ~30%. 3. Hypoglycemia of 69 mg/dL present on admission with increased life stress causing decreased appetite compounding #1 & #2 - Give IVF with D5NS and then recheck glucose to ensure improvement. Check HgbA1c. We will encourage PO intake. 4. Hypokalemia of 3.2 mmol/L present on admission adding to the pathologic impact of #1 - #3 - Give supplemental KCl and then recheck level in the AM to confirm correction. 5. OA; with chronic back pain syndrome on prn oxycodone and gabapentin enhancing the medical complexity of #1 - #4 - Resume gabapentin as previous but minimize opiates as much as possible in an effort to prevent serial readmission and further potential negative health impacts of this regimen. 6. Depression with anxiety; on escitalopram and prn clonazepam - Continue escitalopram but minimize clonazepam with suspected Adverse Drug Interaction precipitating #1 - #4. 7. Chronic insomnia; on scheduled zolpidem - Hold this agent in favor of Melatonin and low-dose Restoril in an effort to minimize potential negative effects of this agent. 8. Hyperlipidemia - Resume statin as previous. 9. Hypothyroidism - Maintain Synthroid and check TSH. 10. Chronic tobacco abuse - Tobacco Cessation will be strongly encouraged with Nicotine patch offered to control cravings. 11. History of asthma - Stable with no evidence of acute flare. 12. GERD - Continue PPI. 13. Listed allergy to PCN and NSAID's (anaphylaxis) - We will avoid these classes of agents. 14. DVT prophylaxis - SCD's only with suspected pulmonary contusions on CT. Total time: Approximately 75 minutes. Charges/Coding Visit Charges Inpatient E&M: 14943 Init Hosp L3
[2023-11-20] MEDS: levoFLOXacin IV 750 MG/150 ML BAG 100 MG IV ×2 (02:47→20:58)
[2023-11-20] MEDS: Morphine 4 MG/ML Syringe IV ×2 (02:47)
[2023-11-20] MEDS: Potassium Chloride Oral Soln 20 MEQ/15 ML UDC 40 MEQ PO (02:55)
[2023-11-20] MEDS: Dextrose 5%/0.9% NaCl 1,000 ML 75 ML IV ×2 (04:39→17:41)
[2023-11-20] MEDS: oxyCODONE 5 MG Tablet 2.5 MG PO ×3 (04:45→23:08)
[2023-11-20] MEDS: Acetaminophen 325 MG Tablet 650 MG PO (04:46)
[2023-11-20] MEDS: Potassium Chloride Oral Tablet 20 MEQ 60 MEQ PO (05:01)
[2023-11-20] MEDS: CLARIFY ORDER NOTE (05:53)
[2023-11-20] MEDS: Gabapentin 400 MG Capsule PO ×3 (05:55→20:56)
[2023-11-20] MEDS: Levothyroxine 88 MCG Tablet PO (05:55)
[2023-11-20 07:30] LABS: Absolute Lymphocyte Count 2.33 X10^3/uL (0.83-4.51); Absolute Neutrophil Count 5.3 X10^3/uL (2.0-7.7); Basophil# 0.03 X10^3/uL; Basophil% 0.4 % (0-1); Eosinophil# 0.39 X10^3/uL; Eosinophils% 4.6 % (0-5); Hematocrit 35.9 % (37-47); Hemoglobin 11.6 g/dL (12.0-15.0); Lymphocyte # 2.33 X10^3/ul (0.83-4.51); Lymphocyte % 27.3 % (19-41); Mean Corp Hgb Conc 32.3 g/dL (32-36); Mean Corpuscular Hgb 31.4 pg (27.0-32.0); Mean Corpuscular Volume 97.3 fL (81-99); Mean Platelet Vol. 9.4 fl (6.2-12.0); Monocyte# 0.46 X10^3/uL; Monocyte% 5.4 % (0-10); NRBC Flagged by Analyzer 0 % (0-5); Neutrophil # 5.31 X10^3/uL (2.7-7.7); Neutrophil % 62.1 % (47-70); Platelet Count 279 K/mm3 (150-450); RBC Distribution Width SD 46.8 fl (35.1-43.9); Red Blood Count 3.69 M/mm3 (4.2-5.4); White Blood Count 8.5 K/mm3 (4.4-11.0)
[2023-11-20 08:19] LABS: ALB/GLOB Ratio 0.8 RATIO (0.9-2.4); AST(SGOT) 18 U/L (15-37); Alanine Aminotransfer ALT/SGPT 23 U/L (13-56); Albumin, Serum 2.7 g/dL (3.2-5.0); Alkaline Phosphatase 91 U/L (45-117); Anion Gap 5 (5-15); BUN 9 mg/dL (7-18); BUN/Creat Ratio 22.7 RATIO (10-20); Calcium,Total 8.5 mg/dL (8.5-10.1); Chloride 109 mmol/L (98-107); EST Glomerular Filtration Rate 173 mL/min (>60); Est Glom Filt Rate - Afr Amer 209 mL/min (>60); Estimated Creatinine Clearance 92.57 ml/min; Globulin 3.3 g/dL (2.2-4.2); Glucose 92 mg/dL (74-106); Magnesium 1.7 mg/dL (1.6-2.6); Potassium 4.4 mmol/L (3.5-5.1); Sodium Level 141 mmol/L (136-145)
[2023-11-20 08:33] LABS: Hemoglobin A1c 5.1 % (3.8-5.6)
[2023-11-20] MEDS: Azelastine HCl NASAL.SRY 1 SPRAY NASAL ×2 (10:04→20:58)
[2023-11-20] MEDS: Multivitamins,Ther W-Minerals Tablet 1 TABLET PO (10:04)
[2023-11-20] MEDS: Lactobacillis Acidophilus 1 CAP PO ×4 (10:04→20:57)
[2023-11-20] MEDS: Pantoprazole Sodium 40 MG Tablet PO (10:05)
[2023-11-20] MEDS: Escitalopram Oxalate 20 MG Tablet PO (10:05)
[2023-11-20] MEDS: Omega-3 Acid Ethyl Esters 1 GM Capsule PO (10:05)
[2023-11-20] MEDS: oxyCODONE CR 15 MG Tablet 30 MG PO ×2 (10:44→20:57)
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
--- NOTE | 2023-11-20 12:21 | CASEMGMT ---
Patient told CM she will need a ride home at discharge. SW put a transport form and green sheet on patient's chart in the event she is discharged over the weekend. Her insurance will pay for transport home. Suzy FAIRBANKS
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
[2023-11-20] MEDS: Albuterol 2.5 MG/3 ML VIAL.NEB. INHALATION (15:21)
[2023-11-20] MEDS: Ensure Plus High Protein 120 ML LIQUID PO (17:36)
[2023-11-20] MEDS: FLU VACC 2024-25(6MOS UP)/PF 45 MCG/0.5 ML SYRINGE IM (18:20)
--- NOTE | 2023-11-20 20:29 | PN.HOSP_ITS ---
Reason for Visit Reason for Visit: Lightheadedness/dizziness Subjective Subjective Patient states she indeed has been coughing and has a cough productive of sputum. States she has had some generalized weakness and lightheadedness but no specific dizziness. She denies any vertiginous symptoms. She did report increase in her chronic pain. She was also found to be hypoglycemic on presentation but does not take anything for her diabetes at home or any medications that have side effects of hypoglycemia. She states she has not been eating well and suspect related to. She does have significant rhonchi on the right side of her chest and some scattered wheezing. Objective Data Objective Data Vital Signs: Vital Signs Temp Pulse Resp BP Pulse Ox O2 Del Method O2 Flow Rate 97.8 F 69 17 85/52 L 95 Nasal Cannula 2 11/20/23 17:11/20/23 17:31 11/20/23 17:31 11/20/23 17:31 11/20/23 17:11/20/23 17:11/20/23 17:31 Oxygen Flow Rate (L/min) 2 Oxygen Delivery Method Nasal Cannula Weight: 40.733 kg Body Mass Index (BMI) 15.4 Intake & Output: Intake and Output for Last 24 Hours 11/18/23 11/19/23 11/20/23 23:59 23:59 23:59 Intake Total 3267.5 / 3267.5 Output Total 500 / 500 Balance 2767.5 / 2767.5 Medical Nutrition Assessment Dietitian: Malnutrition Criteria Met Start: 11/20/23 14:55 Freq: Status: Active Protocol: Document 11/20/23 14:55 SB (Rec: 11/20/23 14:55 SB [id number]) Nutrition Malnutrition Evidence of Malnutrition Exists Yes Malnutrition (severe): Chronic Evidenced By Suboptimal Energy Intake ( Severe),Weight Loss (Severe), Physical Changes (Severe) Clinical Problem Chronic Disease or Condition Related Malnutrition Etiology severe malnutrition related to inadequate oral intake Signs/Symptoms as evidenced by PO meeting <75 % of estimated nutrition needs and 31% weight loss x 1 year, severe fat/muscle wasting in orbital, temporal, and clavicle region, and BMI 15.4. Status Active Problem Recommendation Dietitian Recommendations/Changes Continue regular diet d/t signs and symptoms of malnutrition. Will order 120ml ensure plush high protein 4x daily with medpass. Pt may benefit from nutrition support if in accordance with pt/family wishes. Will monitor weight, as available. Reviewed and approved by Ciera Mandel RD, LD. Lab / Micro Data 11/20/23 06:58 11/20/23 06:58 Labs: Laboratory Results - last 24 hr 11/19/23 00:54: Urine Color Yellow, Urine Clarity Clear, Urine pH 6.5, Ur Specific [place] 1.005, Urine Protein Negative, Urine Glucose (UA) Normal, Urine Ketones Negative, Urine Occult Blood Negative, Urine Nitrite Negative, Urine Bilirubin Negative, Urine Urobilinogen Normal, Ur Leukocyte Esterase Negative, Urine RBC 0 SEEN, Urine WBC 0 SEEN, Ur Squamous Epith Cells 0-5 SEEN, Urine Bacteria RARE, Urine Mucus 0 SEEN 11/19/23 23:58: WBC 9.4, RBC 3.96 L, Hgb 12.5, Hct 38.0, MCV 96.0, MCH 31.6, MCHC 32.9, RDW Std Deviation 46.3 H, RDW Coeff of Poonam 13.1, Plt Count 293, MPV 9.8, Immature Gran % (Auto) 1.300 H, Neut % (Auto) 63.5, Lymph % (Auto) 27.4, [place] % (Auto) 5.0, Eos % (Auto) 2.5, Baso % (Auto) 0.3, Absolute Neuts (auto) 6.0, Absolute Lymphs (auto) 2.57, Nucleated RBC % 0, PT 13.4, INR 1.0, APTT 30.1, Sodium 143, Potassium 3.2 L, Chloride 107, Carbon Dioxide 30.0, Anion Gap 6, BUN 11, Creatinine 0.49 L, Estim Creat Clear Calc 80.36, Est GFR (MDRD) Af Amer 164, Est GFR (MDRD) Non-Af 136, BUN/Creatinine Ratio 22.5 H, Glucose 69 L, Calcium 9.0, Total Bilirubin 0.20, Direct Bilirubin 0.12, AST 25, ALT 28, Alkaline Phosphatase 113, Total Protein 6.6, Albumin 3.2, Globulin 3.4 11/20/23 00:54: Urine Opiates Screen POSITIVE H, Urine Methadone Screen NEGATIVE, Ur Barbiturates Screen NEGATIVE, Ur Phencyclidine Scrn NEGATIVE, Ur Amphetamines Screen NEGATIVE, MDMA (Ecstasy) Screen NEGATIVE, U Benzodiazepines Scrn NEGATIVE, Urine Cocaine Screen NEGATIVE, U Cannabinoids Screen POSITIVE H, Ur Drug Screen Comment 11/20/23 06:58: WBC 8.5, RBC 3.69 L, Hgb 11.6 L, Hct 35.9 L, MCV 97.3, MCH 31.4, MCHC 32.3, RDW Std Deviation 46.8 H, RDW Coeff of Poonam 13.0, Plt Count 279, MPV 9.4, Immature Gran % (Auto) 0.200, Neut % (Auto) 62.1, Lymph % (Auto) 27.3, [place] % (Auto) 5.4, Eos % (Auto) 4.6, Baso % (Auto) 0.4, Absolute Neuts (auto) 5.3, Absolute Lymphs (auto) 2.33, Nucleated RBC % 0, Sodium 141, Potassium 4.4, C hloride 109 H, Carbon Dioxide 27.0, Anion Gap 5, BUN 9, Creatinine 0.40 L, Estim Creat Clear Calc 92.57, Est GFR (MDRD) Af Amer 209, Est GFR (MDRD) Non-Af 173, B UN/Creatinine Ratio 22.7 H, Glucose 92, Hemoglobin A1c 5.1, Calcium 8.5, Phosphorus 3.0, Magnesium 1.7, Total Bilirubin 0.70, AST 18, ALT 23, Alkaline Phosphatase 91, Total Protein 6.0 L, Albumin 2.7 L, Globulin 3.3, A lbumin/Globulin Ratio 0.8 L, TSH 2.150 Micro: Microbiology 11/19/23 23:56 Mucosa - Nose SARS-CoV-2, Influenza & RSV (PCR) - Final Radiography Diagnostic Testing: Radiology Impression Forearm X-Ray 11/20/23 00:27 IMPRESSION: Negative right forearm x-rays. Electronically Signed: Mitch Dietz MD at 1:03 EDT Reading Location ID and State: [facility] / [place] Tel , Service support , Shoulder X-Ray 11/20/23 00:27 IMPRESSION: No acute findings in the right shoulder. Electronically Signed: Mitch Dietz MD at 1:02 EDT Reading Location ID and State: [address] [place] [address] Tel , Service support , Wrist X-Ray 11/20/23 00:27 IMPRESSION: No acute findings in the right wrist. Electronically Signed: Mitch Dietz MD at 1:02 EDT Reading Location ID and State: [facility] / [place] Tel , Service support , Brain CT 11/20/23 23:51 IMPRESSION: Negative head/brain CT without intravenous contrast. Electronically Signed: Mitch Dietz MD at 1:00 EDT Reading Location ID and State: [address] [place] [address] Tel , Service support , Cervical Spine CT 11/20/23 23:51 IMPRESSION: 1. No acute injuries identified involving the cervical spine. 2. Degenerative changes. Electronically Signed: Mitch Dietz MD at 1:01 EDT Reading Location ID and State: [address] [place] [address] Tel , Service support , Chest/Abdomen/Pelvis CT 11/20/23 23:51 IMPRESSION: 1. Patchy multilobar airspace disease in the right upper, right middle and right lower lobes. Findings could indicate pneumonia or pulmonary contusions. 2. No other acute abnormalities identified in the chest abdomen or pelvis. Electronically Signed: Mitch Dietz MD at 1:21 EDT Reading Location ID and State: [facility] / [place] Tel , Service support , Assessment & Plan Assessment/Plan (1) Hypokalemia: (2) Hypoglycemia: (3) Pneumonia: QUALIFIERS: Pneumonia type: due to unspecified organism L aterality: right Lung location: unspecified part of lung Qualified Code(s): J 18.9 - Pneumonia, unspecified organism (4) Generalized weakness: PLAN: Plan Community-acquired pneumonia secondary to suspected community-acquired organisms -Continue levofloxacin -Check strep pneumo and Legionella antigens -Check sputum culture if able to produce -Continue I-S -Add Acapella -Continue aggressive pulmonary toilet -No marked wheezing so we will hold off on steroids for now -Continue home guaifenesin -Encourage out of bed and mobility Hypoglycemia-resolved -Suspect related to poor p.o. intake -Discontinue fluids with dextrose and half-normal saline -Continue supplements to encourage p.o. intake Hypokalemia -Resolved Severe malnutrition -dietitian is following -Continue supplements as ordered Generalized weakness/fall -Patient refused PT and OT today -I strongly encouraged her to to comply tomorrow and she inform me that she would -We did discuss that if she does not improve clinically she may need to go to a retirement and she does not want to do that GERD -Continue home PPI Hypothyroidism -Continue home levothyroxine Allergies -Continue home nasal spray Hyperlipidemia Continue home atorvastatin Chronic pain -Continue home tizanidine -Continue home oxycodone Anxiety/depression -Continue home clonazepam--> discontinue temazepam -Discontinue Benadryl IV -Continue home Lexapro -Continue home mirtazapine -Hold home zolpidem -Would recommend melatonin at this time if sleeping is an issue THC abuse -Recommend cessation Tobacco abuse -Recommend cessation -Nicotine patch available DVT prophylaxis -Add Lovenox 30 subcu
[2023-11-20] MEDS: clonazePAM 1 MG Tablet 2 MG PO (20:56)
[2023-11-20] MEDS: Atorvastatin Calcium 20 MG Tablet PO (20:57)
[2023-11-20] MEDS: tiZANidine HCl 2 MG Tablet PO (20:57)
[2023-11-20] MEDS: Zolpidem Tartrate 5 MG Tablet PO (20:57)
[2023-11-20] MEDS: Mirtazapine 30 MG Tablet PO (20:57)
[2023-11-20] MEDS: guaiFENesin 600 MG Tablet PO (20:58)
[2023-11-20] MEDS: MELATONIN 10 MG TABLET PO (20:58)
--- NOTE | 2023-11-20 23:51 | CT_ITS ---
EXAM: CT CHEST, ABDOMEN AND PELVIS WITH INTRAVENOUS CONTRAST CLINICAL INDICATION: FALL TECHNIQUE: Helically acquired images were obtained of the chest, abdomen and pelvis with intravenous contrast. This CT exam was performed using one or more of the following dose reduction techniques: automated exposure control, adjustment of the mA and/or kV according to patient size, and/or use of iterative reconstruction technique. CONTRAST: IV 100mL [id number]-370 RADIATION DOSE: CTDIvol = 10.26 mGy, DLP = 529.91 mGy-cm COMPARISON: No relevant prior studies available. FINDINGS: CHEST: LUNGS AND PLEURAL SPACES: Patchy multilobar airspace disease in the right upper, right middle and right lower lobes. No mass. No pleural effusion or thickening. HEART: Unremarkable. Heart size is normal. No pericardial effusion. MEDIASTINUM: Unremarkable. No mediastinal or hilar adenopathy. Esophagus is unremarkable. No hiatal hernia. THYROID: Unremarkable. No thyroid lesions. ABDOMEN: LIVER: Unremarkable. Homogeneous. No focal mass. GALLBLADDER AND BILE DUCTS: Unremarkable. No calcified gallstones. No gallbladder distention or wall edema. No intra- or extrahepatic biliary ductal dilation. PANCREAS: Unremarkable. No focal cystic or solid mass. SPLEEN: Unremarkable. Normal size without focal cystic or solid mass. ADRENALS: Unremarkable. No nodules. KIDNEYS AND URETERS: Large simple left renal cyst. No follow-up imaging is recommended per consensus recommendations based on imaging criteria. Normal renal size and position. STOMACH AND BOWEL: Unremarkable. No stomach or bowel distention. No focal inflammatory change. PELVIS: APPENDIX: No evidence of acute appendicitis. BLADDER: Unremarkable. REPRODUCTIVE: Unremarkable as visualized. No mass. CHEST, ABDOMEN and PELVIS: INTRAPERITONEAL SPACE: No hemoperitoneum. No free air. RETROPERITONEAL SPACE: No blood in the retroperitoneum. BONES/JOINTS: Degenerative changes of the spine. No fractures. No suspicious lytic or blastic abnormality. SOFT TISSUES: Unremarkable. No discrete abdominal or pelvic wall hernia. VASCULATURE: No aortic injury. Aorta is non-dilated. No aortic dissection. No obvious central pulmonary embolism although this study was not performed with the pulmonary embolism protocol. LYMPH NODES: Unremarkable. No enlarged lymph nodes. CT/CT Chest, Abd, Pel w/Contrast IMPRESSION: 1. Patchy multilobar airspace disease in the right upper, right middle and right lower lobes. Findings could indicate pneumonia or pulmonary contusions. 2. No other acute abnormalities identified in the chest abdomen or pelvis. Electronically Signed: Mitch Dietz MD at 1:21 EDT ,
--- NOTE | 2023-11-20 23:51 | CT_ITS ---
EXAM: CT CERVICAL SPINE WITHOUT INTRAVENOUS CONTRAST CLINICAL INDICATION: FALL TECHNIQUE: Helically acquired images were obtained of the cervical spine without intravenous contrast. 2D reformatted images were reviewed. This CT exam was performed using one or more of the following dose reduction techniques: automated exposure control, adjustment of the mA and/or kV according to patient size, and/or use of iterative reconstruction technique. RADIATION DOSE: CTDIvol = 11.79 mGy, DLP = 264.18 mGy-cm COMPARISON: No relevant prior studies available. FINDINGS: VERTEBRAE: Unremarkable. No fracture. No traumatic subluxation. No discrete lytic or blastic abnormality. Normal alignment. Normal craniocervical junction and cervicothoracic junction. DISCS/SPINAL CANAL/NEURAL FORAMINA: Degenerative changes of the intervertebral discs. No critical stenosis. SOFT TISSUES: Unremarkable. No prevertebral soft tissue swelling. LYMPH NODES: Unremarkable. No cervical adenopathy. LUNG APICES: Unremarkable as visualized. Clear. CT/Spine Cervical without Contras IMPRESSION: 1. No acute injuries identified involving the cervical spine. 2. Degenerative changes. Electronically Signed: Mitch Dietz MD at 1:01 EDT ,
--- NOTE | 2023-11-20 23:51 | CT_ITS ---
EXAM: CT HEAD WITHOUT INTRAVENOUS CONTRAST CLINICAL INDICATION: FALL TECHNIQUE: Multiple axial images were obtained of the head without intravenous contrast. This CT exam was performed using one or more of the following dose reduction techniques: automated exposure control, adjustment of the mA and/or kV according to patient size, and/or use of iterative reconstruction technique. RADIATION DOSE: CTDIvol = 44.99 mGy, DLP = 796.11 mGy-cm COMPARISON: No relevant prior studies available. FINDINGS: BRAIN AND EXTRA-AXIAL SPACES: Unremarkable. No intra- or extra-axial hemorrhage. No evidence of acute infarct. No intracranial mass or mass effect. There is preservation of the cunningham/white matter interface. Posterior fossa structures are unremarkable. Ventricles are appropriate for age. No hydrocephalus. Basal cisterns are patent. BONES/JOINTS: Unremarkable. No discrete lytic or blastic abnormalities. SINUSES: Unremarkable as visualized. Clear. MASTOID AIR CELLS: Unremarkable. Clear. ORBITS: Visualized globes, extraocular muscles, optic nerves and retrobulbar fat appear unremarkable. CT/Brain/Head without Contrast IMPRESSION: Negative head/brain CT without intravenous contrast. Electronically Signed: Mitch Dietz MD at 1:00 EDT ,
[2023-11-21 05:00] VITALS: BP 96/52; PULSE 68; RESP 18; TEMP 36.3; O2SAT 91
[2023-11-21] MEDS: clonazePAM 1 MG Tablet 2 MG PO ×2 (05:52→18:10)
[2023-11-21] MEDS: Gabapentin 400 MG Capsule PO ×3 (05:52→21:05)
[2023-11-21] MEDS: Levothyroxine 88 MCG Tablet PO (05:52)
[2023-11-21 06:53] LABS: Absolute Lymphocyte Count 1.79 X10^3/uL (0.83-4.51); Absolute Neutrophil Count 3.7 X10^3/uL (2.0-7.7); Basophil# 0.03 X10^3/uL; Basophil% 0.5 % (0-1); Eosinophil# 0.26 X10^3/uL; Eosinophils% 4.1 % (0-5); Hematocrit 38.4 % (37-47); Hemoglobin 12.2 g/dL (12.0-15.0); Lymphocyte # 1.79 X10^3/ul (0.83-4.51); Lymphocyte % 28.4 % (19-41); Mean Corp Hgb Conc 31.8 g/dL (32-36); Mean Corpuscular Hgb 31.2 pg (27.0-32.0); Mean Corpuscular Volume 98.2 fL (81-99); Mean Platelet Vol. 9.1 fl (6.2-12.0); Monocyte# 0.53 X10^3/uL; Monocyte% 8.4 % (0-10); NRBC Flagged by Analyzer 0 % (0-5); Neutrophil # 3.66 X10^3/uL (2.7-7.7); Neutrophil % 58.1 % (47-70); Platelet Count 276 K/mm3 (150-450); RBC Distribution Width CV 13.2 % (11.6-14.6); RBC Distribution Width SD 46.7 fl (35.1-43.9); Red Blood Count 3.91 M/mm3 (4.2-5.4); White Blood Count 6.3 K/mm3 (4.4-11.0)
[2023-11-21 07:18] LABS: Anion Gap 4 (5-15); BUN 10 mg/dL (7-18); BUN/Creat Ratio 25.8 RATIO (10-20); Calcium,Total 8.9 mg/dL (8.5-10.1); Chloride 111 mmol/L (98-107); Creatinine, Serum 0.39 mg/dL (0.55-1.02); EST Glomerular Filtration Rate 177 mL/min (>60); Est Glom Filt Rate - Afr Amer 215 mL/min (>60); Estimated Creatinine Clearance 94.94 ml/min; Glucose 88 mg/dL (74-106); Potassium 3.9 mmol/L (3.5-5.1); Sodium Level 140 mmol/L (136-145)
[2023-11-21 07:29] VITALS: O2SAT 94
[2023-11-21 09:07] VITALS: BP 96/49; PULSE 71; RESP 18; TEMP 36.3; O2SAT 92
[2023-11-21] MEDS: oxyCODONE CR 15 MG Tablet 30 MG PO (09:15)
[2023-11-21] MEDS: guaiFENesin 600 MG Tablet PO ×2 (09:16→21:06)
[2023-11-21] MEDS: Escitalopram Oxalate 20 MG Tablet PO (09:16)
[2023-11-21] MEDS: Omega-3 Acid Ethyl Esters 1 GM Capsule PO (09:16)
[2023-11-21] MEDS: Azelastine HCl NASAL.SRY 1 SPRAY NASAL ×2 (09:16→21:06)
[2023-11-21] MEDS: Lactobacillis Acidophilus 1 CAP PO ×4 (09:16→21:05)
[2023-11-21] MEDS: Pantoprazole Sodium 40 MG Tablet PO (09:16)
[2023-11-21] MEDS: Multivitamins,Ther W-Minerals Tablet 1 TABLET PO (09:17)
[2023-11-21] MEDS: tiZANidine HCl 2 MG Tablet PO ×2 (09:17→21:05)
[2023-11-21] MEDS: Fluticasone 0.05% 1 SPRAY NASAL.SRY 2 SPRAY NASAL (09:23)
[2023-11-21] MEDS: oxyCODONE 5 MG Tablet 2.5 MG PO (14:30)
--- NOTE | 2023-11-21 14:38 | CPS ---
Discontinued RT's coming in to have her work on her I.S. & PEP. She does not want bothered any longer about them.
--- NOTE | 2023-11-21 14:47 | PCM.PN.HOSP ---
Reason for Visit Reason for Visit: Shortness of breath Subjective Subjective Patient states she feels no better. She is refused to get out of bed. She is asking for her home doses of narcotics. She states she is feeling like she is withdrawing some so we will go ahead and upper doses. I did tell her that it was imperative she get out of bed and move around today. Sputum culture was given and pending. She stated I called the insurance company and they told me that I should stay in the hospital as long as possible. Objective Data Objective Data Vital Signs: Vital Signs Temp Pulse Resp BP Pulse Ox O2 Del Method O2 Flow Rate 97.4 F L 71 18 96/49 L 92 Room Air 2 11/21/23 09:07 11/21/23 09:07 11/21/23 09:07 11/21/23 09:07 11/21/23 09:07 11/21/23 10:00 11/21/23 07:29 Oxygen Flow Rate (L/min) 2 Oxygen Delivery Method Room Air Weight: 40.733 kg Body Mass Index (BMI) 15.4 Intake & Output: Intake and Output for Last 24 Hours 11/19/23 11/20/23 11/21/23 23:59 23:59 23:59 Intake Total 4417.5 / 4417.5 500 / 500 Output Total 500 / 500 Balance 3917.5 / 3917.5 500 / 500 Medical Nutrition Assessment Dietitian: Malnutrition Criteria Met Start: 11/20/23 14:55 Freq: Status: Active Protocol: Document 11/20/23 14:55 SB (Rec: 11/20/23 14:55 SB [id number]) Nutrition Malnutrition Evidence of Malnutrition Exists Yes Malnutrition (severe): Chronic Evidenced By Suboptimal Energy Intake ( Severe),Weight Loss (Severe), Physical Changes (Severe) Clinical Problem Chronic Disease or Condition Related Malnutrition Etiology severe malnutrition related to inadequate oral intake Signs/Symptoms as evidenced by PO meeting <75 % of estimated nutrition needs and 31% weight loss x 1 year, severe fat/muscle wasting in orbital, temporal, and clavicle region, and BMI 15.4. Status Active Problem Recommendation Dietitian Recommendations/Changes Continue regular diet d/t signs and symptoms of malnutrition. Will order 120ml ensure plush high protein 4x daily with medpass. Pt may benefit from nutrition support if in accordance with pt/family wishes. Will monitor weight, as available. Reviewed and approved by Ciera Mandel RD, LD. Lab / Micro Data 11/21/23 06:40 11/21/23 06:40 Labs: Laboratory Results - last 24 hr 11/21/23 06:40: WBC 6.3, RBC 3.91 L, Hgb 12.2, Hct 38.4, MCV 98.2, MCH 31.2, MCHC 31.8 L, RDW Std Deviation 46.7 H, RDW Coeff of Poonam 13.2, Plt Count 276, MPV 9.1, Immature Gran % (Auto) 0.500, Neut % (Auto) 58.1, Lymph % (Auto) 28.4, [place] % (Auto) 8.4, Eos % (Auto) 4.1, Baso % (Auto) 0.5, Absolute Neuts (auto) 3.7, Absolute Lymphs (auto) 1.79, Nucleated RBC % 0, Sodium 140, Potassium 3.9, Chloride 111 H, Carbon Dioxide 26.0, Anion Gap 4 L, BUN 10, Creatinine 0.39 L, Estim Creat Clear Calc 94.94, Est GFR (MDRD) Af Amer 215, Est GFR (MDRD) Non-Af 177, BUN/Creatinine Ratio 25.8 H, Glucose 88, Calcium 8.9 Micro: Microbiology 11/20/23 00:54 Urine, Random Legionella Antigen - Final 11/20/23 00:54 Urine, Random Streptococcus pneumoniae Antigen (M - Final 11/19/23 23:56 Mucosa - Nose SARS-CoV-2, Influenza & RSV (PCR) - Final Physical Exam Const alert, oriented x3, no apparent distress and average body habitus; Negative for healthy appearing or well nourished Constitutional Narrative: Lying in bed sleeping, awakens but startles, alert and oriented once awake and, appears comfortable and does not look toxic, appears much older than stated age and looks chronically ill General Appearance: cooperative HEENT normocephalic, head/scalp atraumatic, hearing grossly normal bilaterally and moist oral mucous membranes HEENT Narrative: Temporal wasting Resp normal respiratory effort, no retractions, no use of accessory muscles and No clear to auscultation bilaterally Auscultation: rhonchi and wheezes; Negative for crackles Cardio regular rate, regular rhythm, S1 normal heart sound, S2 normal heart sound, no murmurs, no rub, no gallops and no clicks GI normal to inspection, nondistended, normoactive bowel sounds, soft to palpation and non-tender Extremity no clubbing, cyanosis or edema Neuro oriented x3, moves all extremities and no focal motor deficits Speech: speech normal Psych affect normal Psych Narrative: Answers questions and interacts appropriately Assessment & Plan Assessment/Plan (1) Hypokalemia: (2) Hypoglycemia: (3) Pneumonia: QUALIFIERS: Pneumonia type: due to unspecified organism Laterality: right Lung location: unspecified part of lung Qualified Code(s): J18.9 - Pneumonia, unspecified organism (4) Generalized weakness: PLAN: Plan Community-acquired pneumonia secondary to suspected community-acquired organisms -Continue levofloxacin -Strep pneumo and Legionella antigens are negative -Sputum culture has been collected and pending -Respiratory viral panel is negative -Check sputum culture if able to produce -Continue I-S -Add Acapella -Continue aggressive pulmonary toilet -Breath sounds are very coarse today will start Solu-Medrol 40 every 8 -Continue home guaifenesin -Encourage out of bed and mobility--> discussed again today with the patient how important getting out of bed and moving around is going to be in her improvement and she promised she would get out of bed today Hypoglycemia -Resolved Severe malnutrition -dietitian is following -Continue supplements as ordered Generalized weakness/fall -Patient refused PT and OT yesterday I informed her that she has to get out of bed today and move around -She promised she would get up and move today -We did discuss that if she does not improve clinically she may need to go to a skilled nursing and she does not want to do that GERD -Continue home PPI Hypothyroidism -Continue home levothyroxine Allergies -Continue home nasal spray Hyperlipidemia Continue home atorvastatin Chronic pain -Continue home tizanidine -Continue home oxycodone extended release and immediate release Anxiety/depression -Continue home clonazepam -Continue home Lexapro -Continue home mirtazapine -Restart home zolpidem THC abuse -Recommend cessation Tobacco abuse -Recommend cessation -Nicotine patch available DVT prophylaxis -Continue subcu Lovenox Charges/Coding Visit Charges Inpatient E&M: 94579 Subs Hosp L2
[2023-11-21 15:07] VITALS: BP 97/56; PULSE 80; RESP 18; TEMP 36.4; O2SAT 92
[2023-11-21] MEDS: oxyCODONE 5 MG Tablet PO (18:10)
[2023-11-21 21:01] VITALS: BP 100/58; PULSE 82; RESP 18; TEMP 36.9; O2SAT 92
[2023-11-21] MEDS: levoFLOXacin IV 750 MG/150 ML BAG 100 MG IV (21:04)
[2023-11-21] MEDS: Ensure Plus High Protein 120 ML LIQUID PO (21:04)
[2023-11-21] MEDS: MELATONIN 10 MG TABLET PO (21:05)
[2023-11-21] MEDS: oxyCODONE HCl Cr 10 MG Tablet 40 MG PO (21:05)
[2023-11-21] MEDS: Mirtazapine 30 MG Tablet PO (21:05)
[2023-11-21] MEDS: Zolpidem Tartrate 5 MG Tablet PO (21:05)
[2023-11-21] MEDS: Atorvastatin Calcium 20 MG Tablet PO (21:06)
[2023-11-21] MEDS: 0.9% Saline Lock 10 ML Syringe IV (21:11)
[2023-11-22] VITALS (9 sets, daily range): BP systolic 86–100; BP diastolic 47–57; PULSE 65–78; RESP 16–18; TEMP 36.4–36.9; O2SAT 92–95; BMI 15.4
[2023-11-22] MEDS: oxyCODONE 5 MG Tablet PO ×3 (02:31→22:15)
[2023-11-22] MEDS: clonazePAM 1 MG Tablet 2 MG PO ×3 (02:31→22:15)
[2023-11-22] MEDS: Levothyroxine 88 MCG Tablet PO (05:42)
[2023-11-22] MEDS: Enoxaparin 30 MG/0.3 ML Syringe SC (05:42)
[2023-11-22] MEDS: Gabapentin 400 MG Capsule PO ×3 (05:42→20:45)
[2023-11-22] MEDS: 0.9% Saline Lock 10 ML Syringe IV ×2 (05:43→14:02)
[2023-11-22] MEDS: Pantoprazole Sodium 40 MG Tablet PO (09:35)
[2023-11-22] MEDS: Escitalopram Oxalate 20 MG Tablet PO (09:35)
[2023-11-22] MEDS: tiZANidine HCl 2 MG Tablet PO ×2 (09:35→20:44)
[2023-11-22] MEDS: Fluticasone 0.05% 1 SPRAY NASAL.SRY 2 SPRAY NASAL (09:35)
[2023-11-22] MEDS: Lactobacillis Acidophilus 1 CAP PO ×4 (09:35→20:44)
[2023-11-22] MEDS: Multivitamins,Ther W-Minerals Tablet 1 TABLET PO (09:35)
[2023-11-22] MEDS: guaiFENesin 600 MG Tablet PO ×2 (09:35→20:44)
[2023-11-22] MEDS: Omega-3 Acid Ethyl Esters 1 GM Capsule PO (09:35)
[2023-11-22] MEDS: Ergocalciferol 1.25 MG (50, 000 UNIT) Capsule PO (09:35)
[2023-11-22] MEDS: Azelastine HCl NASAL.SRY 1 SPRAY NASAL ×2 (09:36→20:45)
[2023-11-22] MEDS: oxyCODONE HCl Cr 10 MG Tablet 40 MG PO ×2 (09:45→20:45)
--- NOTE | 2023-11-22 12:26 | PN.HOSP_ITS ---
Reason for Visit Reason for Visit: Lightheadedness/dizziness Subjective Subjective Patient states her pain is better managed now that she is on her home regimen. Did get up some with therapy but interaction was minimal and only walked 5 feet. Ongoing therapy was recommended. Patient states she is amenable to home health. From medical standpoint she is getting ready for discharge and will likely be able to go tomorrow as long as we can set up home health with her. Objective Data Objective Data Vital Signs: Vital Signs Temp Pulse Resp BP Pulse Ox O2 Del Method O2 Flow Rate 97.6 F L 66 18 92/51 L 92 Room Air 2 11/22/23 05:47 11/22/23 07:00 11/22/23 05:47 11/22/23 05:47 11/22/23 11:00 11/22/23 10:00 11/21/23 07:29 Oxygen Flow Rate (L/min) 2 Oxygen Delivery Method Room Air Weight: 40.72 kg Body Mass Index (BMI) 15.4 Intake & Output: Intake and Output for Last 24 Hours 11/20/23 11/21/23 11/22/23 23:59 23:59 23:59 Intake Total 4417.5 / 4417.5 950 / 950 Output Total 500 / 500 300 / 300 Balance 3917.5 / 3917.5 950 / 950 -300 / -300 Medical Nutrition Assessment Dietitian: Malnutrition Criteria Met Start: 11/20/23 14:55 Freq: Status: Active Protocol: Document 11/20/23 14:55 SB (Rec: 11/20/23 14:55 SB [id number]) Nutrition Malnutrition Evidence of Malnutrition Exists Yes Malnutrition (severe): Chronic Evidenced By Suboptimal Energy Intake ( Severe),Weight Loss (Severe), Physical Changes (Severe) Clinical Problem Chronic Disease or Condition Related Malnutrition Etiology severe malnutrition related to inadequate oral intake Signs/Symptoms as evidenced by PO meeting <75 % of estimated nutrition needs and 31% weight loss x 1 year, severe fat/muscle wasting in orbital, temporal, and clavicle region, and BMI 15.4. Status Active Problem Recommendation Dietitian Recommendations/Changes Continue regular diet d/t signs and symptoms of malnutrition. Will order 120ml ensure plush high protein 4x daily with medpass. Pt may benefit from nutrition support if in accordance with pt/family wishes. Will monitor weight, as available. Reviewed and approved by Ciera Mandel RD, LD. Lab / Micro Data 11/21/23 06:40 11/21/23 06:40 Micro: Microbiology 11/21/23 11:18 Sputum, Expectorated/Coughed Gram Stain - Final 11/21/23 11:18 Sputum, Expectorated/Coughed Respiratory Culture - Preliminary Appears to be normal respiratory rj. Further studies to follow. 11/20/23 00:54 Urine, Random Legionella Antigen - Final 11/20/23 00:54 Urine, Random Streptococcus pneumoniae Antigen (M - Final 11/19/23 23:56 Mucosa - Nose SARS-CoV-2, Influenza & RSV (PCR) - Final Physical Exam Const alert, oriented x3, no apparent distress and average body habitus; Negative for healthy appearing or well nourished Constitutional Narrative: Cachectic, upper middle-aged, white female, sitting up in bed watching television, appears comfortable, appears chronically ill and much older than stated age but nontoxic General Appearance: cooperative HEENT normocephalic, head/scalp atraumatic, hearing grossly normal bilaterally and moist oral mucous membranes HEENT Narrative: No thrush, Mallampati 2, temporal wasting Resp normal respiratory effort, no retractions, no use of accessory muscles and No clear to auscultation bilaterally Resp Narrative: Does have an expiratory wheeze but predominantly sounds forced as when I do not have her do deep breathing and him auscultating her heart wheeze resolves Auscultation: wheezes; Negative for crackles or rhonchi Cardio regular rate, regular rhythm, S1 normal heart sound, S2 normal heart sound, no murmurs, no rub, no gallops and no clicks GI normal to inspection, nondistended, normoactive bowel sounds, soft to palpation and non-tender GI Narrative: Scaphoid abdomen Extremity no clubbing, cyanosis or edema Extremity Narrative: Patient is unable to lift her legs off the bed due to back pain. Neuro oriented x3 and no focal motor deficits Speech: speech normal Psych affect normal Psych Narrative: Answers questions and interacts appropriately Assessment & Plan Assessment/Plan (1) Hypokalemia: (2) Hypoglycemia: (3) Pneumonia: QUALIFIERS: Pneumonia type: due to unspecified organism L aterality: right Lung location: unspecified part of lung Qualified Code(s): J 18.9 - Pneumonia, unspecified organism (4) Generalized weakness: PLAN: Plan Community-acquired pneumonia secondary to suspected community-acquired organisms -Continue levofloxacin but transition to oral day 3 of 7 -Would continue Levaquin at discharge as patient has penicillin allergy -Strep pneumo and Legionella antigens are negative -Sputum culture shows oral rj -Respiratory viral panel is negative -Continue I-S -Continue Acapella -Continue aggressive pulmonary toilet -Continue Solu-Medrol with slow prednisone taper at discharge -Continue home guaifenesin -Continue to encourage ambulation Severe malnutrition -dietitian is following -Continue supplements as ordered Generalized weakness/fall -She did participate with therapy yesterday but minimal ambulation at 5 feet -Does not want to go to SNF at discharge but is amenable to home health -Will plan on setting up tomorrow and hopeful for discharge home on 11/23/2023 GERD -Continue home PPI Hypothyroidism -Continue home levothyroxine Allergies -Continue home nasal spray Hyperlipidemia Continue home atorvastatin Chronic pain -Continue home tizanidine -Continue home oxycodone extended release and immediate release Anxiety/depression -Continue home clonazepam -Continue home Lexapro -Continue home mirtazapine -Restart home zolpidem THC abuse -Recommend cessation Tobacco abuse -Recommend cessation -Nicotine patch available DVT prophylaxis -Continue subcu Lovenox Charges/Coding Visit Charges Inpatient E&M: 92752 Subs Hosp L2
[2023-11-22] MEDS: levoFLOXacin 750 MG Tablet PO (14:01)
[2023-11-22] MEDS: Atorvastatin Calcium 20 MG Tablet PO (20:44)
[2023-11-22] MEDS: Mirtazapine 30 MG Tablet PO (20:44)
[2023-11-22] MEDS: MELATONIN 10 MG TABLET PO (20:45)
[2023-11-22] MEDS: Zolpidem Tartrate 5 MG Tablet PO (20:45)
[2023-11-22] MEDS: Polyethylene Glycol 3350 17 GM PACKET PO (21:28)
[2023-11-23 03:00] VITALS: BP 92/59; PULSE 73; RESP 18; TEMP 36.6; O2SAT 92
[2023-11-23 05:01] VITALS: BMI 15.4
[2023-11-23] MEDS: Gabapentin 400 MG Capsule PO ×3 (05:02→22:14)
[2023-11-23] MEDS: Levothyroxine 88 MCG Tablet PO (05:02)
[2023-11-23] MEDS: Enoxaparin 30 MG/0.3 ML Syringe SC (05:02)
[2023-11-23] MEDS: levoFLOXacin 750 MG Tablet PO (05:02)
[2023-11-23 06:23] LABS: Hematocrit 39.5 % (37-47); Hemoglobin 12.8 g/dL (12.0-15.0); Mean Corp Hgb Conc 32.4 g/dL (32-36); Mean Corpuscular Hgb 31.1 pg (27.0-32.0); Mean Corpuscular Volume 96.1 fL (81-99); Mean Platelet Vol. 10.1 fl (6.2-12.0); Platelet Count 338 K/mm3 (150-450); RBC Distribution Width CV 13.2 % (11.6-14.6); RBC Distribution Width SD 47.1 fl (35.1-43.9); Red Blood Count 4.11 M/mm3 (4.2-5.4); White Blood Count 16.1 K/mm3 (4.4-11.0)
[2023-11-23] MEDS: clonazePAM 1 MG Tablet 2 MG PO ×3 (06:40→23:08)
[2023-11-23] MEDS: oxyCODONE 5 MG Tablet PO ×3 (06:40→23:08)
[2023-11-23 06:54] LABS: Anion Gap 5 (5-15); BUN 24 mg/dL (7-18); BUN/Creat Ratio 49.6 RATIO (10-20); Chloride 106 mmol/L (98-107); Creatinine, Serum 0.48 mg/dL (0.55-1.02); EST Glomerular Filtration Rate 137 mL/min (>60); Est Glom Filt Rate - Afr Amer 166 mL/min (>60); Estimated Creatinine Clearance 77.12 ml/min; Glucose 126 mg/dL (74-106); Potassium 4.3 mmol/L (3.5-5.1); Sodium Level 140 mmol/L (136-145)
[2023-11-23 10:01] VITALS: BP 95/57; PULSE 71; RESP 17; TEMP 36.7; O2SAT 92
[2023-11-23] MEDS: oxyCODONE HCl Cr 10 MG Tablet 40 MG PO ×2 (10:07→22:14)
[2023-11-23] MEDS: tiZANidine HCl 2 MG Tablet PO ×2 (10:08→22:14)
[2023-11-23] MEDS: Escitalopram Oxalate 20 MG Tablet PO (10:08)
[2023-11-23] MEDS: Lactobacillis Acidophilus 1 CAP PO ×4 (10:08→22:14)
[2023-11-23] MEDS: Pantoprazole Sodium 40 MG Tablet PO (10:08)
[2023-11-23] MEDS: Omega-3 Acid Ethyl Esters 1 GM Capsule PO (10:08)
[2023-11-23] MEDS: Multivitamins,Ther W-Minerals Tablet 1 TABLET PO (10:08)
[2023-11-23] MEDS: guaiFENesin 600 MG Tablet PO ×2 (10:08→22:14)
[2023-11-23] MEDS: Azelastine HCl NASAL.SRY 1 SPRAY NASAL ×2 (10:09→22:17)
[2023-11-23] MEDS: Polyethylene Glycol 3350 17 GM PACKET PO (10:09)
[2023-11-23] MEDS: Fluticasone 0.05% 1 SPRAY NASAL.SRY 2 SPRAY NASAL ×2 (10:09→22:14)
--- NOTE | 2023-11-23 10:30 | CASEMGMT ---
Addendum entered by Shannon Mccauley 11/23/23 11:08: JOSE PARRA reviewed HHC list provided by DC executive community planning. Pt chose [facility] as first choice and [facility] as second choice. JOSE PARRA called [facility] to see if willing to accept. Original Note: JOSE PARRA into pt room to discuss DC plan. Pt agreeable to going home with HHC. Will get a list of local providers approved by insurance.
--- NOTE | 2023-11-23 10:38 | CASEMGMT ---
Discharge Planning A list of?HH providers including quality and resource use data and consistent with the patient's preferred geographic region, medical needs, and insurance network was created in [employer] Guide.? This list was provided to the RN FIDEL. Natasha Hyatt, Discharge Planning Asst.
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
--- NOTE | 2023-11-23 11:38 | CASEMGMT ---
[facility] called and stated willing to accept pt. SOC is 11/25/23. Notified Pt and updated DC plan. Pt denies any additional questions or concerns at this time.
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
--- NOTE | 2023-11-23 14:12 | CASEMGMT ---
RAIN had received a voice mail from Subha Maldonado from [facility] inquiring if patient is still in the hospital. RAIN called Subha and left her a voice mail letting her know patient is still in the hospital and the d/c plan is home with [facility]. Suzy [employer]ANKS
[2023-11-23] MEDS: Oxymetazoline 0.05% 1 SPRAY SPRAY.BTL 2 SPRAY NASAL ×2 (14:21→22:16)
[2023-11-23] MEDS: 0.9% Saline Lock 10 ML Syringe IV (14:24)
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
--- NOTE | 2023-11-23 16:18 | PN.HOSP_ITS ---
Reason for Visit Reason for Visit: Diagnoses Hypoglycemia, unspecified (11/20/23) Hypokalemia (11/20/23) Chronic pain syndrome (11/20/23) Pneumonia, unspecified organism (11/20/23) Weakness (11/20/23) Contusion of lung, unilateral, initial encounter (11/20/23) Unspecified fall, initial encounter (11/20/23) Other fpc (current) drug therapy (11/20/23) Objective Data Objective Data Vital Signs: Vital Signs Temp Pulse Resp BP Pulse Ox O2 Del Method O2 Flow Rate 98.1 F 71 17 95/57 L 92 Room Air 2 11/23/23 10:01 11/23/23 10:01 11/23/23 10:01 11/23/23 10:11/23/23 10:01 11/23/23 14:27 11/23/23 11:44 Oxygen Flow Rate (L/min) 2 Oxygen Delivery Method Room Air Weight: 89 lb 12.356 oz Body Mass Index (BMI) 15.4 Intake & Output: Intake and Output for Last 24 Hours 11/21/23 11/22/23 11/23/23 23:59 23:59 23:59 Intake Total 950 / 950 Output Total 800 / 1100 550 / 550 Balance 950 / 950 -800 / -1100 -550 / -550 Medical Nutrition Assessment Dietitian: Malnutrition Criteria Met Start: 11/20/23 14:55 Freq: Status: Active Protocol: Document 11/23/23 15:17 SB (Rec: 11/23/23 15:17 SB [id number]) Nutrition Malnutrition Evidence of Malnutrition Exists Yes Malnutrition (severe): Chronic Evidenced By Suboptimal Energy Intake ( Severe),Weight Loss (Severe), Physical Changes (Severe) Clinical Problem Chronic Disease or Condition Related Malnutrition Etiology severe malnutrition related to inadequate oral intake Signs/Symptoms as evidenced by PO meeting <75 % of estimated nutrition needs and 31% weight loss x 1 year, severe fat/muscle wasting in orbital, temporal, and clavicle region, and BMI 15.4. Status Active Problem Recommendation Dietitian Recommendations/Changes Continue regular diet d/t signs and symptoms of malnutrition. Continue 120ml ensure plush high protein 4x daily with medpass. Continue remeron, to encouraged an increase in oral intake. Pt may benefit from nutrition support if in accordance with pt/family wishes. Will monitor weight, as available. Will provide further education , if pt request. Reviewed and approved by Ciera Mandel, RD, LD. Lab / Micro Data 11/23/23 05:36 11/23/23 05:36 Labs: Laboratory Results - last 24 hr 11/23/23 05:36: WBC 16.1 H, RBC 4.11 L, Hgb 12.8, Hct 39.5, MCV 96.1, MCH 31.1, MCHC 32.4, RDW Std Deviation 47.1 H, RDW Coeff of Poonam 13.2, Plt Count 338, MPV 10.1, Sodium 140, Potassium 4.3, Chloride 106, Carbon Dioxide 29.0, Anion Gap 5, BUN 24 H, Creatinine 0.48 L, Estim Creat Clear Calc 77.12, Est GFR (MDRD) Af Amer 166, Est GFR (MDRD) Non-Af 137, BUN/Creatinine Ratio 49.6 H, Glucose 126 H, Calcium 9.0 Micro: Microbiology 11/21/23 11:18 Sputum, Expectorated/Coughed Gram Stain - Final 11/21/23 11:18 Sputum, Expectorated/Coughed Respiratory Culture - Final 11/20/23 00:54 Urine, Random Legionella Antigen - Final 11/20/23 00:54 Urine, Random Streptococcus pneumoniae Antigen (M - Final 11/19/23 23:56 Mucosa - Nose SARS-CoV-2, Influenza & RSV (PCR) - Final Physical Exam Narrative Seen and examined. Gets easily short of breath on walking. No chest pain but significant wheezing. Patient still smokes cigarettes states he cut down to 2 to 3 cigarettes/day. Had back surgery in the past. Physical exam General: Alert, Oriented x3, Cooperative HEENT: Atraumatic, PERRLA, EOMI, Normocephalic Oral: No Gingival or Mucosal Lesions/ Ulcerations Neck: Supple, No JVD, Negative Carotid Bruits Chest wall/Lungs: Air entry diminished in bilateral lungs. Bilateral wheezing and expiratory rhonchi. Cardiovascular: Regular rate, Regular Rhythm, Normal S1, Normal S2, No M/G/R Abdomen: Bowel Sounds Present, Soft, Non Tender, Non-Distended : No dysuria. No renal angle tenderness. No suprapubic tenderness. Extremities: No edema, Capillary Refill Less than 3 Seconds Skin: No rashes, No breakdown Musculoskeletal: No acute tenderness to Palpation of Joints or Extremities. Degenerative arthritis. Spine: Mild chronic tenderness present on lumbar spine. Had laminectomy surgery Neurological: Cranial nerves II-XII grossly intact, DTR 2+/4. No acute focal neurological deficit. Psych/Mental Status: Normal Affect, Appropriate. Assessment & Plan Assessment/Plan (1) Hypokalemia: (2) Hypoglycemia: (3) Pneumonia: QUALIFIERS: Pneumonia type: due to unspecified organism L aterality: right Lung location: unspecified part of lung Qualified Code(s): J 18.9 - Pneumonia, unspecified organism (4) Generalized weakness: PLAN: Plan Community-acquired pneumonia secondary to suspected community-acquired organisms: Patient is admitted on PCU. On levofloxacin. Infectious workup including respiratory panel,, sputum culture, urinary antigens are negative. Patient is being managed on scheduled bronchodilator, IV Solu-Medrol, Mucinex, incentive spirometry and Pep. -Continue levofloxacin but transition to oral day 3 of 7 Severe malnutrition -dietitian is following -Continue supplements as ordered Generalized weakness/fall: Does not want to go to SNF. Patient states she is still severely winded short of breath and weak therefore 1 more day. GERD -Continue home PPI Hypothyroidism -Continue home levothyroxine Allergies -Continue home nasal spray Hyperlipidemia Continue home atorvastatin Chronic pain -Continue home tizanidine -Continue home oxycodone extended release and immediate release Anxiety/depression -Continue home clonazepam -Continue home Lexapro -Continue home mirtazapine -Restart home zolpidem THC abuse -Recommend cessation Tobacco abuse -Recommend cessation -Nicotine patch available DVT prophylaxis -Continue subcu Lovenox Charges/Coding Visit Charges Inpatient E&M: 63897 Subs Hosp L2
[2023-11-23 16:33] VITALS: BP 110/63; PULSE 68; RESP 17; TEMP 36.8; O2SAT 96
[2023-11-23] MEDS: Mirtazapine 15 MG Tablet PO (22:13)
[2023-11-23] MEDS: MELATONIN 10 MG TABLET PO (22:14)
[2023-11-23] MEDS: Zolpidem Tartrate 5 MG Tablet PO (22:14)
[2023-11-23] MEDS: Atorvastatin Calcium 20 MG Tablet PO (22:14)
[2023-11-23] MEDS: Ensure Plus High Protein 120 ML LIQUID PO (22:19)
[2023-11-23 22:24] VITALS: BP 105/67; PULSE 73; RESP 17; TEMP 36.8; O2SAT 94
[2023-11-24 03:33] VITALS: BMI 15.7
[2023-11-24 04:24] VITALS: BP 96/56; PULSE 66; RESP 15; TEMP 36.4; O2SAT 94
[2023-11-24] MEDS: Gabapentin 400 MG Capsule PO (05:49)
[2023-11-24] MEDS: Enoxaparin 30 MG/0.3 ML Syringe SC (05:49)
[2023-11-24] MEDS: levoFLOXacin 750 MG Tablet PO (05:50)
[2023-11-24] MEDS: Levothyroxine 88 MCG Tablet PO (05:50)
[2023-11-24] MEDS: clonazePAM 1 MG Tablet 2 MG PO (07:00)
[2023-11-24] MEDS: oxyCODONE 5 MG Tablet PO (07:00)
[2023-11-24] MEDS: Pantoprazole Sodium 40 MG Tablet PO (08:21)
[2023-11-24] MEDS: Fluticasone 0.05% 1 SPRAY NASAL.SRY 2 SPRAY NASAL (08:21)
[2023-11-24] MEDS: guaiFENesin 600 MG Tablet PO (08:21)
[2023-11-24] MEDS: Oxymetazoline 0.05% 1 SPRAY SPRAY.BTL 2 SPRAY NASAL (08:22)
[2023-11-24] MEDS: Lactobacillis Acidophilus 1 CAP PO (08:23)
[2023-11-24] MEDS: Azelastine HCl NASAL.SRY 1 SPRAY NASAL (08:23)
[2023-11-24] MEDS: Polyethylene Glycol 3350 17 GM PACKET PO (08:24)
[2023-11-24] MEDS: Omega-3 Acid Ethyl Esters 1 GM Capsule PO (08:24)
[2023-11-24] MEDS: Multivitamins,Ther W-Minerals Tablet 1 TABLET PO (08:24)
[2023-11-24] MEDS: Escitalopram Oxalate 20 MG Tablet PO (08:24)
[2023-11-24] MEDS: Ensure Plus High Protein 120 ML LIQUID PO (08:26)
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
[2023-11-24 10:13] VITALS: BP 109/57; PULSE 63; RESP 18; TEMP 36.4; O2SAT 95
[2023-11-24] MEDS: oxyCODONE HCl Cr 10 MG Tablet 40 MG PO (10:14)
[2023-11-24] MEDS: tiZANidine HCl 2 MG Tablet PO (10:14)
--- NOTE | 2023-11-24 10:49 | DCINST_ITS ---
Discharge Instructions Diet Discharge Diet: 2000 mg Sodium Diet Activity Discharge Activity: Return to Normal Activity Weight Bearing Status: Weight bearing as tolerated Dressing / Incision Call your doctor if you observe: Fever of 101 or Higher, Coldness, Increased Pain, Numbness or Tingling, Change in Color, Inability to urinate, Inability to have a bowel movement, Shortness of breath, Dizziness, Fainting spells, Swelling in the ankles, Chest pain, Prolonged hiccupping, Increased palpitations (irregular heartbeat) and Calf discomfort Follow Up Care When: IN 2 WEEKS Test Results: Test results from this visit will be discussed in further detail at your follow- up appointment, if applicable. Discharge Plan Admission Admit Date/Time: 11/20/23 03:06 Primary Reason for Your Visit: COPD exacerbation from COVID-19 pneumonia Attending Provider: Velasquez Samuels Primary Care Provider: ROLO MONROE Consulting Providers: Fawad Mcdonnell; Malgorzata Camargo Discharge Orders/Prescriptions Prescriptions: New dextromethorphan-guaifenesin [Mucus DM Max ER] 60-1,200 mg tablet extended release 12 hr 1 tab PO Q12H 7 Days Qty: 14 0RF prednisone 10 mg tablet 10 mg PO DAILY Qty: 30 0RF Rx Instructions: 40 mg for 3 days 30 mg for 3 days, 20 mg for 3 days,and 10 mg for 3 days Continued atorvastatin 20 mg tablet 20 mg PO DAILY azelastine 137 mcg (0.1 %) spray,non-aerosol 1 spray INTRANASAL BID epinephrine 0.3 mg/0.3 mL auto-injector 0.3 mg IM PRN PRN (Reason: anaphylaxis) gabapentin 400 mg capsule 400 mg PO TID levothyroxine 88 mcg tablet 88 mcg PO DAILY pantoprazole 40 mg tablet,delayed release (DR/EC) 40 mg PO DAILY mirtazapine 30 mg tablet 30 mg PO QHS clonazepam 2 mg tablet 2 mg PO TID PRN PRN (Reason: anxiety) zolpidem 5 mg tablet 5 mg PO QHS ergocalciferol (vitamin D2) 1,250 mcg (50,000 unit) capsule 1,250 mcg PO QWEEK Patient Comments: takes on thursday escitalopram oxalate 20 mg tablet 20 mg PO DAILY omega-3 acid ethyl esters 1 gram capsule 1 cap PO DAILY Tab-A-Massiel Multivitamin w-iron 15 mg iron- 400 mcg tablet 1 tab PO DAILY oxycodone [OxyContin] 40 mg tablet,oral only,ext.rel.12 hr 40 mg PO BID oxycodone 5 mg tablet 5 mg PO Q8H PRN PRN (Reason: pain) fluticasone propionate 50 mcg/actuation spray,suspension 2 spray INTRANASAL DAILY tizanidine 2 mg tablet 2 mg PO BID Discontinued guaifenesin [Mucinex] 600 mg tablet extended release 12hr 600 mg PO BID Referrals / Follow Up: ROLO MONROE [Other] Philip Rome DO [Med Staff - Active Staff] - Within 2 Weeks (COPD exacerbation. Active smoker) Care Physician,No Primary [Non-Staff] - Disposition Disposition (needs filled in before D/C Order can be placed): Home, Self Care
--- NOTE | 2023-11-24 10:55 | PCM.DC.SUM ---
Providers Date of Admission: 11/20/23 Date of Discharge: 11/24/23 Primary Care Physician: ROLO MONROE Reason For Visit: RIGHT PNA +/- PULMONARY CONTUSIONS AFTER FALL Diagnosis Discharge Diagnosis (1) Hypokalemia: Status: Acute Code(s): E87.6 - Hypokalemia (2) Hypoglycemia: Status: Acute Code(s): E16.2 - Hypoglycemia, unspecified (3) Pneumonia: Status: Acute Code(s): J18.9 - Pneumonia, unspecified organism Qualifiers: Laterality: right Lung location: unspecified part of lung Pneumonia type: due to unspecified organism Qualified Code(s): J18.9 - Pneumonia, unspecified organism (4) Generalized weakness: Status: Acute Code(s): R53.1 - Weakness Plan This is a 63-year-old female was admitted after fall, complaining of shortness of breath productive cough with sputum production. Diagnosed with pneumonia involving right upper lobe on CT of the chest. 1. Community-acquired pneumonia secondary to suspected community-acquired organisms: Patient was admitted on PCU. On levofloxacin. Infectious workup including respiratory panel,, sputum culture, urinary antigens are negative. Patient is being managed on scheduled bronchodilator, IV Solu-Medrol, Mucinex, incentive spirometry and Pep. -Continue levofloxacin had 5 days of inpatient treatment. Discharged on 2 more days of Levaquin to complete a total of 7 days. Continue incentive spirometry and PEP for 1 week. Discharged on tapering dose of prednisone and Mucinex at home., Prescription given for 2. Severe malnutrition -dietitian is following -Continue supplements as ordered 3. Generalized weakness/fall: Does not want to go to SNF. GERD -Continue home PPI Hypothyroidism -Continue home levothyroxine Allergies -Continue home nasal spray Hyperlipidemia Continue home atorvastatin Chronic pain -Continue home tizanidine -Continue home oxycodone extended release and immediate release Anxiety/depression -Continue home clonazepam -Continue home Lexapro -Continue home mirtazapine -Restart home zolpidem THC abuse -Recommend cessation Tobacco abuse -Recommend cessation -Nicotine patch available DVT prophylaxis -Continue subcu Lovenox Discharge medication reconciliation done. Discharge follow-up instructions completed. Discharge process discussed with the patient and all questions were answered to patient's satisfaction. Follow with PCP in 1 to 2 weeks Total time spent, exact 35 minutes on discharge meds reconciliation, examination, coordination of care with nurses and ancillary staff, review of imaging and blood test and discussion with the patient on follow-up instructions. Medications at Discharge Home Medications atorvastatin 20 mg tablet 20 mg PO DAILY chlesterol 11/19/23 azelastine 137 mcg (0.1 %) nasal spray 1 spray intranasal BID allergies 11/19/23 clonazepam 2 mg tablet 2 mg PO TID PRN PRN anxiety 11/19/23 epinephrine 0.3 mg/0.3 mL injection, auto-injector 0.3 mg IM PRN PRN anaphylaxis 11/19/23 ergocalciferol (vitamin D2) 1,250 mcg (50,000 unit) capsule 1,250 mcg PO QWEEK suppliment 11/19/23 escitalopram oxalate 20 mg tablet 20 mg PO DAILY mood 11/19/23 gabapentin 400 mg capsule 400 mg PO TID neuropathy 11/19/23 levothyroxine 88 mcg tablet 88 mcg PO DAILY thyroid 11/19/23 mirtazapine 30 mg tablet 30 mg PO QHS mental health 11/19/23 multivitamin-iron sulfate 15 mg-folic acid 400 mcg tablet (Tab-A-Massiel Multivitamin w-iron) 1 tab PO DAILY multivitamin 11/19/23 omega-3 acid ethyl esters 1 gram capsule 1 cap PO DAILY 11/19/23 pantoprazole 40 mg tablet,delayed release 40 mg PO DAILY stomach 11/19/23 zolpidem 5 mg tablet 5 mg PO QHS insomnia 11/19/23 fluticasone propionate 50 mcg/actuation nasal spray,suspension 2 spray intranasal DAILY allergies 11/20/23 oxycodone 40 mg tablet,crush resistant,extended release 12 hr (OxyContin) 40 mg PO BID pain 11/20/23 oxycodone 5 mg tablet 5 mg PO Q8H PRN PRN pain 11/20/23 tizanidine 2 mg tablet 2 mg PO BID muscles 11/20/23 dextromethorphan-guaifenesin ER 60 mg-1,200 mg tab,extend release,12hr (Mucus DM Max ER) 1 tab PO Q12H 1 week #14 tabs 11/24/23 levofloxacin 500 mg tablet 500 mg PO DAILY 2 days #2 tabs 11/24/23 prednisone 10 mg tablet 10 mg PO DAILY #30 tabs 11/24/23 Physical Exam Narrative Seen and examined. Patient is not a short of breath at rest or on walking No chest pain. Mild wheeze. Patient still smokes cigarettes states he cut down to 2 to 3 cigarettes/day. Had back surgery in the past. Physical exam General: Alert, Oriented x3, Cooperative HEENT: Atraumatic, PERRLA, EOMI, Normocephalic Oral: No Gingival or Mucosal Lesions/ Ulcerations Neck: Supple, No JVD, Negative Carotid Bruits Chest wall/Lungs: Air entry diminished in bilateral lungs. Bilateral wheezing and expiratory rhonchi Metavir score. Cardiovascular: Regular rate, Regular Rhythm, Normal S1, Normal S2, No M/G/R Abdomen: Bowel Sounds Present, Soft, Non Tender, Non-Distended : No dysuria. No renal angle tenderness. No suprapubic tenderness. Extremities: No edema, Capillary Refill Less than 3 Seconds Skin: No rashes, No breakdown Musculoskeletal: No acute tenderness to Palpation of Joints or Extremities. Degenerative arthritis. Spine: Mild chronic tenderness present on lumbar spine. Had laminectomy surgery Neurological: Cranial nerves II-XII grossly intact, DTR 2+/4. No acute focal neurological deficit. Psych/Mental Status: Normal Affect, Appropriate. Medical Records Data Medical Nutrition Assessment Dietitian: Malnutrition Criteria Met Start: 11/20/23 14:55 Freq: Status: Active Protocol: Document 11/23/23 15:17 SB (Rec: 11/23/23 15:17 SB [id number]) Nutrition Malnutrition Evidence of Malnutrition Exists Yes Malnutrition (severe): Chronic Evidenced By Suboptimal Energy Intake ( Severe),Weight Loss (Severe), Physical Changes (Severe) Clinical Problem Chronic Disease or Condition Related Malnutrition Etiology severe malnutrition related to inadequate oral intake Signs/Symptoms as evidenced by PO meeting <75 % of estimated nutrition needs and 31% weight loss x 1 year, severe fat/muscle wasting in orbital, temporal, and clavicle region, and BMI 15.4. Status Active Problem Recommendation Dietitian Recommendations/Changes Continue regular diet d/t signs and symptoms of malnutrition. Continue 120ml ensure plush high protein 4x daily with medpass. Continue remeron, to encouraged an increase in oral intake. Pt may benefit from nutrition support if in accordance with pt/family wishes. Will monitor weight, as available. Will provide further education , if pt request. Reviewed and approved by Ciera Mandel RD, LD. Weight / BMI Weight Weight: 91 lb 11.397 oz Body Mass Index (BMI) 15.7 ABG / Lab / Microbiology Data 11/23/23 05:36 11/23/23 05:36 Microbiology: Microbiology 11/21/23 11:18 Sputum, Expectorated/Coughed Gram Stain - Final 11/21/23 11:18 Sputum, Expectorated/Coughed Respiratory Culture - Final 11/20/23 00:54 Urine, Random Legionella Antigen - Final 11/20/23 00:54 Urine, Random Streptococcus pneumoniae Antigen (M - Final 11/19/23 23:56 Mucosa - Nose SARS-CoV-2, Influenza & RSV (PCR) - Final D/C Instructions Discharge Diet: 2000 mg Sodium Diet Weight Bearing Status: Weight bearing as tolerated Call your doctor if you observe: Fever of 101 or Higher, Coldness, Increased Pain, Numbness or Tingling, Change in Color, Inability to urinate, Inability to have a bowel movement, Shortness of breath, Dizziness, Fainting spells, Swelling in the ankles, Chest pain, Prolonged hiccupping, Increased palpitations (irregular heartbeat) and Calf discomfort When: IN 2 WEEKS Meaningful Use Info Meaningful Use Meaningful Use Diagnoses (Choose all that apply): None applicable Ischemic Stroke Statin Dosing Therapy Reference: STATIN DOSE THERAPY REFERENCE: * Patients > 75 years receive moderate or high dose statin therapy. * Patients 75 years or YOUNGER should receive HIGH intensity statin dose unless contraindicated. You will be required to document reason for non-treatment if statin daily dose does not meet guidelines. HIGH DOSE STATIN THERAPY DAILY Atorvastatin > than or = to 40 mg Rosuvastatin > than or = to 20 mg Amlodipine + Atorvastatin > than or = to 2.5/40 mg Ezetimibe + Simvastatin 10/80 mg Simvastatin 80mg Discharge Plan Admission Admit Date/Time: 11/20/23 03:06 Primary Reason for Your Visit: COPD exacerbation from COVID-19 pneumonia Attending Provider: Velasquez Samuels Primary Care Provider: ROLO MONROE Consulting Providers: Fawad Mcdonnell; Malgorzata Camargo Discharge Orders/Prescriptions Prescriptions: New dextromethorphan-guaifenesin [Mucus DM Max ER] 60-1,200 mg tablet extended release 12 hr 1 tab PO Q12H 7 Days Qty: 14 0RF prednisone 10 mg tablet 10 mg PO DAILY Qty: 30 0RF Rx Instructions: 40 mg for 3 days 30 mg for 3 days, 20 mg for 3 days,and 10 mg for 3 days levofloxacin 500 mg tablet 500 mg PO DAILY 2 Days Qty: 2 0RF Continued atorvastatin 20 mg tablet 20 mg PO DAILY azelastine 137 mcg (0.1 %) spray,non-aerosol 1 spray INTRANASAL BID epinephrine 0.3 mg/0.3 mL auto-injector 0.3 mg IM PRN PRN (Reason: anaphylaxis) gabapentin 400 mg capsule 400 mg PO TID levothyroxine 88 mcg tablet 88 mcg PO DAILY pantoprazole 40 mg tablet,delayed release (DR/EC) 40 mg PO DAILY mirtazapine 30 mg tablet 30 mg PO QHS clonazepam 2 mg tablet 2 mg PO TID PRN PRN (Reason: anxiety) zolpidem 5 mg tablet 5 mg PO QHS ergocalciferol (vitamin D2) 1,250 mcg (50,000 unit) capsule 1,250 mcg PO QWEEK Patient Comments: takes on thursday escitalopram oxalate 20 mg tablet 20 mg PO DAILY omega-3 acid ethyl esters 1 gram capsule 1 cap PO DAILY Tab-A-Massiel Multivitamin w-iron 15 mg iron- 400 mcg tablet 1 tab PO DAILY oxycodone [OxyContin] 40 mg tablet,oral only,ext.rel.12 hr 40 mg PO BID oxycodone 5 mg tablet 5 mg PO Q8H PRN PRN (Reason: pain) fluticasone propionate 50 mcg/actuation spray,suspension 2 spray INTRANASAL DAILY tizanidine 2 mg tablet 2 mg PO BID Discontinued guaifenesin [Mucinex] 600 mg tablet extended release 12hr 600 mg PO BID Referrals / Follow Up: ROLO MONROE [Other] Philip Rome DO [Med Staff - Active Staff] - Within 2 Weeks (COPD exacerbation. Active smoker) Care Physician,No Primary [Non-Staff] - Disposition Disposition (needs filled in before D/C Order can be placed): Home, Self Care Charges/Coding Visit Charges Inpatient E&M: 34091 Disch Hosp >30min
--- NOTE | 2023-11-24 11:31 | CASEMGMT ---
SW spoke with patient to see if she needed a walker. Patient stated she has a rollator which is easier for her to use. Patient did ask for a bedside commode. RAIN notified RN FIDEL. Suzy FAIRBANKS
--- NOTE | 2023-11-24 11:41 | CASEMGMT ---
Addendum entered by Shannon Mccauley 11/24/23 11:46: JOSE PARRA placed copy of order in chart. Original Note: SW notified RN CM pt would like a script for bedside commode. JOSE PARRA obtained order, provided order to pt to obtain from Dr [facility].
--- NOTE | 2023-11-24 12:11 | CASEMGMT ---
RAIN called [facility] and left a voice mail for Rafael letting her know patient is being discharged today. RAIN called Subha Maldonado ([phone]) and left her a voice mail letting her know patient is being discharged today with [facility]. RAIN also faxed d/c summary to Subha. RAIN called [facility] Home coverage line and let them know about d/c. Suzy FAIRBANKS
== END 2023-11-24 13:21 | disposition home health service (06) | DRG 193 ==
LOC: ED 11-20 02:21 → PCU 11-20 03:19
PROVIDERS: Internal Medicine; Admitting Provider Internal Medicine; Emergency Provider Emergency Medicine; Visit Provider Internal Medicine
DX: J18.9 Pneumonia, unspecified organism (principal); E43 Unspecified severe protein-calorie malnutrition; S27.321A Contusion of lung, unilateral, initial encounter; Z68.1 Body mass index [BMI] 19.9 or less, adult; E03.9 Hypothyroidism, unspecified; K21.9 Gastro-esophageal reflux disease without esophagitis; F17.210 Nicotine dependence, cigarettes, uncomplicated; M19.90 Unspecified osteoarthritis, unspecified site; E16.2 Hypoglycemia, unspecified; E78.00 Pure hypercholesterolemia, unspecified; E87.6 Hypokalemia; F41.8 Other specified anxiety disorders; W10.9XXA Fall (on) (from) unspecified stairs and steps, initial encounter; M54.9 Dorsalgia, unspecified; G89.4 Chronic pain syndrome; Z23 Encounter for immunization; G47.00 Insomnia, unspecified; Z79.899 Other long term (current) drug therapy; Z79.890 Hormone replacement therapy
CPT/HCPCS: 36415; 70450; 71260; 72125; 73030; 73090; 73110; 74177; 80048; 80053; 80076; 80307; 81001; 83036; 83735; 84100; 84443; 85025; 85027; 85610; 85730; 87070; 87205; 87449; 87631; 90656; 93005; 94640; 94668; 96365; 96366; 96372; 96375; 96376; 97110; 97162; 97166; 97530; 97535; 97802; 97803; 99221; 99285; P9612; A4216; G0378; J2405

== ENCOUNTER 2023-12-05 01:03 | Emergency (ER) | payer MEDICARE, MEDICAID, SELFPAY ==
[2023-12-05] VITALS (8 sets, daily range): BP systolic 77–95; BP diastolic 43–62; PULSE 57–86; RESP 13–19; TEMP 36–36.8; O2SAT 93–98; BMI 15.7
--- NOTE | 2023-12-05 01:05 | CT_ITS ---
EXAM: CT HEAD WITHOUT INTRAVENOUS CONTRAST CLINICAL INDICATION: head injury TECHNIQUE: Multiple axial images were obtained of the head without intravenous contrast. This CT exam was performed using one or more of the following dose reduction techniques: automated exposure control, adjustment of the mA and/or kV according to patient size, and/or use of iterative reconstruction technique. RADIATION DOSE: CTDIvol = 44.99 mGy, DLP = 745.49 mGy-cm COMPARISON: Noncontrast head CT 11/20/2023. FINDINGS: BRAIN AND EXTRA-AXIAL SPACES: Mild generalized atrophy. Mild low density bilaterally in the deep white matter. No intra- or extra-axial hemorrhage. No evidence of acute infarct. No intracranial mass or mass effect. There is preservation of the cunningham/white matter interface. Posterior fossa structures are unremarkable. No hydrocephalus. Basal cisterns are patent. BONES/JOINTS: Unremarkable. No discrete lytic or blastic abnormalities. SOFT TISSUES: Mild left forehead scalp hematoma. SINUSES: Unremarkable as visualized. Clear. MASTOID AIR CELLS: Unremarkable. Clear. ORBITS: Visualized globes, extraocular muscles, optic nerves and retrobulbar fat appear unremarkable. CT/Brain/Head without Contrast IMPRESSION: 1. Mild left forehead scalp hematoma. 2. Mild generalized atrophy. Mild low density bilaterally in the deep white matter. This likely represents chronic small vessel ischemic changes in the deep white matter. Electronically Signed: Logan Blackwell MD at 1:50 EDT ,
--- NOTE | 2023-12-05 01:05 | CT_ITS ---
EXAM: CT CERVICAL SPINE WITHOUT INTRAVENOUS CONTRAST CLINICAL INDICATION: trauma TECHNIQUE: Helically acquired images were obtained of the cervical spine without intravenous contrast. 2D reformatted images were reviewed. This CT exam was performed using one or more of the following dose reduction techniques: automated exposure control, adjustment of the mA and/or kV according to patient size, and/or use of iterative reconstruction technique. RADIATION DOSE: CTDIvol = 11.79 mGy, DLP = 243.56 mGy-cm COMPARISON: 11/20/2023. FINDINGS: VERTEBRAE: Unremarkable. No fracture. No traumatic subluxation. No discrete lytic or blastic abnormality. Normal alignment. Normal craniocervical junction and cervicothoracic junction. DISCS/SPINAL CANAL/NEURAL FORAMINA: Moderate multilevel cervical degenerative disc disease. No critical stenosis. SOFT TISSUES: Unremarkable. No prevertebral soft tissue swelling. LYMPH NODES: Unremarkable. No cervical adenopathy. LUNG APICES: Unremarkable as visualized. Clear. CT/Spine Cervical without Contras IMPRESSION: Moderate cervical degenerative changes. No acute fractures or subluxations. Electronically Signed: Logan Blackwell MD at 1:51 EDT ,
--- NOTE | 2023-12-05 01:10 | EDS_ITS ---
HPI HPI - Fall History of Present Illness Chief Complaint: Fall Narrative Narrative: History and physical limited secondary to patient intoxication, and she received Geodon as well. Per EMS, patient recently released from the hospital for pneumonia 3 days ago. She lives in the basement of the house, and EMS had been called out for fall. She appeared very intoxicated and complains of right upper arm pain as well as hematoma on her left forehead that is tender. Unsure if there was any loss of consciousness, but patient was arguing with EMS regarding being evaluated in the hospital. [facility] Medical History (Updated 12/05/23 @ 04:27 by David Lanier MD) Use of cane as ambulatory aid Uses roller walker Back injury Asthma Home Medications ?Medication ?Instructions ?Recorded ?Last Taken ?Type atorvastatin 20 mg tablet 20 mg PO DAILY chlesterol 11/19/23 Unknown History azelastine 137 mcg (0.1 %) nasal 1 spray intranasal BID allergies 11/19/23 Unknown History spray clonazepam 2 mg tablet 2 mg PO TID PRN PRN anxiety 11/19/23 Unknown History epinephrine 0.3 mg/0.3 mL 0.3 mg IM PRN PRN anaphylaxis 11/19/23 Unknown History injection, auto-injector ergocalciferol (vitamin D2) 1,250 1,250 mcg PO QWEEK suppliment 11/19/23 Unknown History mcg (50,000 unit) capsule escitalopram oxalate 20 mg tablet 20 mg PO DAILY mood 11/19/23 Unknown History gabapentin 400 mg capsule 400 mg PO TID neuropathy 11/19/23 Unknown History levothyroxine 88 mcg tablet 88 mcg PO DAILY thyroid 11/19/23 Unknown History mirtazapine 30 mg tablet 30 mg PO QHS mental health 11/19/23 Unknown History multivitamin-iron sulfate 15 1 tab PO DAILY multivitamin 11/19/23 Unknown History mg-folic acid 400 mcg tablet (Tab-A-Massiel Multivitamin w-iron) omega-3 acid ethyl esters 1 gram 1 cap PO DAILY 11/19/23 Unknown History capsule pantoprazole 40 mg tablet,delayed 40 mg PO DAILY stomach 11/19/23 Unknown History release zolpidem 5 mg tablet 5 mg PO QHS insomnia 11/19/23 Unknown History fluticasone propionate 50 2 spray intranasal DAILY allergies 11/20/23 Unknown History mcg/actuation nasal spray,suspension oxycodone 40 mg tablet,crush 40 mg PO BID pain 11/20/23 Unknown History resistant,extended release 12 hr (OxyContin) oxycodone 5 mg tablet 5 mg PO Q8H PRN PRN pain 11/20/23 Unknown History tizanidine 2 mg tablet 2 mg PO BID muscles 11/20/23 Unknown History dextromethorphan-guaifenesin ER 60 1 tab PO Q12H 1 week #14 tabs 11/24/23 Unknown Rx mg-1,200 mg tab,extend release,12hr (Mucus DM Max ER) prednisone 10 mg tablet 10 mg PO DAILY #30 tabs 11/24/23 Unknown Rx Allergy/AdvReac Type Severity Reaction Status Date / Time NSAIDS (Non-Steroidal Allergy Anaphylaxis Verified 12/05/23 01:04 Anti-Inflamma Penicillins (PCN) Allergy Anaphylaxis Verified 12/05/23 01:04 Social History Smoking Status: Current every day smoker tobacco type: cigarettes ROS ROS ED Review of Systems ROS Unobtainable: due to mental status EXAM Physical Exam Narrative Exam Narrative: GCS 14. ABCs intact. Appears mildly intoxicated. Smell of alcohol and cigarettes on breath. Head is normocephalic, with hematoma on left forehead and other bruising on forehead with abrasions on nose as well. Neck is soft and supple without vertebral point tenderness or step-off. There is abrasion noted to the mid shaft of the right upper arm. No active bleeding. Mild tenderness to palpation midshaft, no crepitance. No obvious deformity. Neurovascular intact distally with equal pulses radially. Cardiovascular examination reveals a regular rate and rhythm. Lungs are clear to auscultation bilaterally. Abdomen soft and nontender with normoactive bowel sounds. Moves all extremiti es. Const Vital Signs: 12/05/23 01:04 12/05/23 01:04 12/05/23 02:04 Temperature 96.8 F L Temperature Source Temporal Pulse Rate 57 L 63 Respiratory Rate 19 H 14 Respiratory Effort Normal Non-Labored Respiratory Depth Normal Respiratory Pattern Normal Blood Pressure 95/57 L 89/61 L Blood Pressure Mean 69 70 Pulse Ox 94 98 Oxygen Delivery Method Room Air Room Air Room Air 12/05/23 03:00 12/05/23 04:00 12/05/23 05:00 Temperature Temperature Source Pulse Rate 68 77 78 Respiratory Rate 19 H 17 17 Respiratory Effort Respiratory Depth Respiratory Pattern Blood Pressure 86/62 L 86/46 L Blood Pressure Mean 70 59 Pulse Ox 94 94 95 Oxygen Delivery Method Room Air Room Air Room Air MDM MDM MDM Narrative Medical decision making narrative: Per EMS, patient does have right rotator cuff problems. Concern is for intracranial hemorrhage versus closed head injury. There is also concern for neck trauma as the patient is intoxicated clinically. CT scans will be obtained as well as basic lab work as in review of her prior problem list she has had electrolyte imbalance as well. She has had fall in the past, as well as chronic pain syndrome and polypharmacy. I reviewed her laboratory work and she has normal white count of 10.8 with hemoglobin 13.3, hematocrit 40.0, platelet count 397. Sodium is normal at 145, but potassium is low at 2.8. I ordered a magnesium and reviewed it and it is normal at 1.9. Chloride is slightly elevated at 110 which I think is nonspecific, creatinine low at 0.41. BUN normal at 18. LFTs are grossly unremarkable. Urinalysis is negative for infection. I do not feel antibiotics are indicated. I reviewed the radiology report of the CT of the brain and the CT of the cervical spine. There is no acute intracranial hemorrhage on the CT of the brain but they do comment on the left forehead hematoma. No fracture of the cervical spine on review of the radiology report. X-ray of the right humerus was obtained and interpreted by myself independently as no evidence of fracture. I reviewed the radiology report which confirms my independent inter pretation. Additionally, on my interpretation of the chest x-ray in 1 view, there is no pneumothorax, no pneumonia. I reviewed the radiology report which confirms my independent interpretation of no acute process. At this point in time, she will be observed in the emergency department as her ethyl alcohol is elevated at 188. She will be discharged when clinically sober and reassessed. Her potassium was replaced orally with 60 milliequivalents. Upon repeat examination she is clinically sober. I feel she can be discharged to follow-up with her primary care provider. I did review her [facility] report, and with her history of chronic pain she takes oxycodone ER 40 mg orally. She can take her medication for analgesia at home. Disposition is discharged in stable condition. History & Record Review Discussion w/independent historian: EMS personnel and Patient Additional record(s) reviewed:: Prior labs Lab Data Attestation: I reviewed the patient's lab results. Labs: Laboratory Results - last 24 hr 12/05/23 12/05/23 01:15 01:49 WBC 10.8 RBC 4.23 Hgb 13.3 Hct 40.0 MCV 94.6 MCH 31.4 MCHC 33.3 RDW Std Deviation 47.4 H RDW Coeff of [place] 13.9 Plt Count 397 MPV 9.0 Immature Gran % (Auto) 0.400 Neut % (Auto) 61.2 Lymph % (Auto) 31.5 [place] % (Auto) 6.0 Eos % (Auto) 0.7 Baso % (Auto) 0.2 Absolute Neuts (auto) 6.6 Absolute Lymphs (auto) 3.39 Nucleated RBC % 0 Sodium 145 Potassium 2.8 L Chloride 110 H Carbon Dioxide 26.0 Anion Gap 9 BUN 18 Creatinine 0.41 L Estim Creat Clear Calc 92.01 Est GFR (MDRD) Af Amer 200 Est GFR (MDRD) Non-Af 165 BUN/Creatinine Ratio 43.6 H Glucose 73 L Calcium 8.8 Magnesium 1.9 Total Bilirubin 0.20 AST 21 ALT 28 Alkaline Phosphatase 87 Total Protein 6.9 Albumin 3.3 Globulin 3.6 Albumin/Globulin Ratio 0.9 Urine Color Yellow Urine Clarity Clear Urine pH 6.0 Ur Specific [place] 1.010 Urine Protein Negative Urine Glucose (UA) Normal Urine Ketones Negative Urine Occult Blood Negative Urine Nitrite Negative Urine Bilirubin Negative Urine Urobilinogen Normal Ur Leukocyte Esterase Negative Urine RBC 0 SEEN Urine WBC 0 SEEN Ur Squamous Epith Cells 0 SEEN Urine Bacteria 0 SEEN Urine Mucus 0 SEEN Ethyl Alcohol 188.0 Radiography Diagnostic Testing: Clinical Impression(s) from Imaging Studies Brain CT 12/05/23 01:05 IMPRESSION: 1. Mild left forehead scalp hematoma. 2. Mild generalized atrophy. Mild low density bilaterally in the deep white matter. This likely represents chronic small vessel ischemic changes in the deep white matter. Electronically Signed: Logan Blackwell MD at 1:50 EDT , Cervical Spine CT 12/05/23 01:05 IMPRESSION: Moderate cervical degenerative changes. No acute fractures or subluxations. Electronically Signed: Logan Blackwell MD at 1:51 EDT , Humerus X-Ray 12/05/23 01:10 IMPRESSION: No acute findings in the right humerus. Electronically Signed: Logan Blackwell MD at 1:52 EDT , Chest X-Ray 12/05/23 01:25 IMPRESSION: No radiographic evidence of acute cardiopulmonary disease. Electronically Signed: Logan Blackwell MD at 1:52 EDT , Discharge Plan Triage Chief Complaint: Fall ED Provider: David Lanier Dx/Rx/DC Orders Clinical Impression: Alcohol intoxication, Fall, Traumatic hematoma of forehead, Contusion of right upper arm, Closed head injury, Hypokalemia Instructions: ED Contusion, Upper Extremity, ED Head Injury (Adult), ED Hematoma, ED Hypokalemia, ED Fall Prevention Prescriptions: No Action atorvastatin 20 mg tablet 20 mg PO DAILY azelastine 137 mcg (0.1 %) spray,non-aerosol 1 spray INTRANASAL BID epinephrine 0.3 mg/0.3 mL auto-injector 0.3 mg IM PRN PRN (Reason: anaphylaxis) gabapentin 400 mg capsule 400 mg PO TID levothyroxine 88 mcg tablet 88 mcg PO DAILY pantoprazole 40 mg tablet,delayed release (DR/EC) 40 mg PO DAILY mirtazapine 30 mg tablet 30 mg PO QHS clonazepam 2 mg tablet 2 mg PO TID PRN PRN (Reason: anxiety) zolpidem 5 mg tablet 5 mg PO QHS ergocalciferol (vitamin D2) 1,250 mcg (50,000 unit) capsule 1,250 mcg PO QWEEK Patient Comments: takes on thursday escitalopram oxalate 20 mg tablet 20 mg PO DAILY omega-3 acid ethyl esters 1 gram capsule 1 cap PO DAILY Tab-A-Massiel Multivitamin w-iron 15 mg iron- 400 mcg tablet 1 tab PO DAILY oxycodone [OxyContin] 40 mg tablet,oral only,ext.rel.12 hr 40 mg PO BID oxycodone 5 mg tablet 5 mg PO Q8H PRN PRN (Reason: pain) fluticasone propionate 50 mcg/actuation spray,suspension 2 spray INTRANASAL DAILY tizanidine 2 mg tablet 2 mg PO BID dextromethorphan-guaifenesin [Mucus DM Max ER] 60-1,200 mg tablet extended release 12 hr 1 tab PO Q12H 7 Days Qty: 14 0RF prednisone 10 mg tablet 10 mg PO DAILY Qty: 30 0RF Rx Instructions: 40 mg for 3 days 30 mg for 3 days, 20 mg for 3 days,and 10 mg for 3 days Primary Care Provider: Aston Bowman Referrals: NOT,DEFINED [Non-Staff] - Activity Restrictions/Additional Instructions: Continue your pain medications as prescribed. Return to the emergency department with new or worsening symptoms. You may need to have your potassium rechecked in the next few days by your primary care provider. Print Language: Icelandic Disposition Disposition: Home, Self Care
--- NOTE | 2023-12-05 01:10 | RAD_ITS ---
EXAM: XR RIGHT HUMERUS, 2 OR MORE VIEWS CLINICAL INDICATION: Trauma TECHNIQUE: Frontal and lateral views of the right humerus. COMPARISON: No relevant prior studies available. FINDINGS: BONES/JOINTS: Degenerative changes in the right shoulder. No acute fracture. No subluxation. Normal alignment. No sclerotic or destructive changes observed. SOFT TISSUES: Unremarkable. No soft tissue swelling or gas. No radiopaque foreign body. RAD/Humerus min 2 Views IMPRESSION: No acute findings in the right humerus. Electronically Signed: Logan Blackwell MD at 1:52 EDT ,
--- NOTE | 2023-12-05 01:25 | RAD_ITS ---
EXAM: XR CHEST, 1 VIEW CLINICAL INDICATION: shortness of breath TECHNIQUE: Frontal view of the chest. COMPARISON: No relevant prior studies available. FINDINGS: LUNGS AND PLEURAL SPACES: Unremarkable. No consolidation or edema. No pneumothorax. No effusion. HEART: Unremarkable. Cardiac silhouette not enlarged. MEDIASTINUM: Central airways and mediastinal contour are unremarkable. BONES/JOINTS: Unremarkable. No acute fracture. SOFT TISSUES: Unremarkable. RAD/Chest 1 View (Portable) IMPRESSION: No radiographic evidence of acute cardiopulmonary disease. Electronically Signed: Logan Blackwell MD at 1:52 EDT ,
[2023-12-05 01:33] LABS: Absolute Lymphocyte Count 3.39 X10^3/uL (0.83-4.51); Absolute Neutrophil Count 6.6 X10^3/uL (2.0-7.7); Basophil# 0.02 X10^3/uL; Basophil% 0.2 % (0-1); Eosinophil# 0.07 X10^3/uL; Eosinophils% 0.7 % (0-5); Hemoglobin 13.3 g/dL (12.0-15.0); Lymphocyte # 3.39 X10^3/ul (0.83-4.51); Lymphocyte % 31.5 % (19-41); Mean Corp Hgb Conc 33.3 g/dL (32-36); Mean Corpuscular Hgb 31.4 pg (27.0-32.0); Mean Corpuscular Volume 94.6 fL (81-99); Monocyte# 0.65 X10^3/uL; NRBC Flagged by Analyzer 0 % (0-5); Neutrophil # 6.59 X10^3/uL (2.7-7.7); Neutrophil % 61.2 % (47-70); Platelet Count 397 K/mm3 (150-450); RBC Distribution Width CV 13.9 % (11.6-14.6); RBC Distribution Width SD 47.4 fl (35.1-43.9); Red Blood Count 4.23 M/mm3 (4.2-5.4); White Blood Count 10.8 K/mm3 (4.4-11.0)
[2023-12-05 01:54] LABS: ALB/GLOB Ratio 0.9 RATIO (0.9-2.4); AST(SGOT) 21 U/L (15-37); Alanine Aminotransfer ALT/SGPT 28 U/L (13-56); Albumin, Serum 3.3 g/dL (3.2-5.0); Alkaline Phosphatase 87 U/L (45-117); Anion Gap 9 (5-15); BUN 18 mg/dL (7-18); BUN/Creat Ratio 43.6 RATIO (10-20); Calcium,Total 8.8 mg/dL (8.5-10.1); Chloride 110 mmol/L (98-107); Creatinine, Serum 0.41 mg/dL (0.55-1.02); EST Glomerular Filtration Rate 165 mL/min (>60); Est Glom Filt Rate - Afr Amer 200 mL/min (>60); Estimated Creatinine Clearance 92.01 ml/min; Globulin 3.6 g/dL (2.2-4.2); Glucose 73 mg/dL (74-106); Potassium 2.8 mmol/L (3.5-5.1); Protein, Total 6.9 g/dL (6.4-8.2); Sodium Level 145 mmol/L (136-145)
[2023-12-05 02:01] LABS: Bacteria 0 SEEN /hpf (None Seen); Mucous, Urine 0 SEEN /hpf (<or=2+); Red Blood Cells-Urine 0 SEEN /hpf (0-5); Squamous Epithelial Cells - UA 0 SEEN /hpf (5-10); White Blood Cells 0 SEEN /hpf (0-5)
[2023-12-05] MEDS: Potassium Chloride Oral Tablet 20 MEQ 60 MEQ PO (02:03)
[2023-12-05 02:05] LABS: Color, Urine Yellow (Yellow); Glucose, Dipstick Normal (Normal); Ketone-Dipstick Negative (Negative); Leukocyte Esterase-Dipstick Negative /ul (Negative); Nitrite-Dipstick Negative (Negative); Occult Blood-Urine Negative /ul (Negative); Protein-Dipstick Negative (Negative); Urine Bilirubin Dipstick Negative (Negative); Urine Clarity Clear (Clear); Urine Urobilinogen Normal (Normal)
--- NOTE | 2023-12-05 02:05 | ED.RN ---
Per pt BP tends to run low, baseline BP is 80s/60s.
[2023-12-05 02:30] LABS: Magnesium 1.9 mg/dL (1.6-2.6)
== END 2023-12-05 07:46 | disposition home or self-care (01) ==
PROVIDERS: Emergency Provider Emergency Medicine; PCP Internal Medicine; Visit Provider Emergency Medicine
DX: F10.129 Alcohol abuse with intoxication, unspecified (principal); S00.83XA Contusion of other part of head, initial encounter; E87.6 Hypokalemia; F17.210 Nicotine dependence, cigarettes, uncomplicated; Y90.6 Blood alcohol level of 120-199 mg/100 ml; S40.021A Contusion of right upper arm, initial encounter; S09.90XA Unspecified injury of head, initial encounter
CPT/HCPCS: 70450; 71045; 72125; 73060; 80053; 81001; 82077; 83735; 85025; 93005; 99283; A4216

== ENCOUNTER 2024-08-28 21:35 | Emergency (ER) | payer MEDICARE, MEDICAID, SELFPAY ==
[2024-08-28 21:36] VITALS: BP 92/46; PULSE 75; RESP 11; TEMP 37.4; O2SAT 86; BMI 20.5
[2024-08-28 21:42] VITALS: O2SAT 94
[2024-08-28 21:44] VITALS: O2SAT 94
[2024-08-28 21:51] VITALS: BP 83/48
[2024-08-28 21:53] VITALS: O2SAT 97
[2024-08-28] MEDS: 0.9% Normal Saline (1000mL) 1,000 ML 999 ML IV ×2 (22:00→23:08)
[2024-08-28 22:24] LABS: Hematocrit 38.6 % (37-47); Hemoglobin 12.5 g/dL (12.0-15.0); Immature Granulocytes Count 0.010 X10^3/uL (0.0-0.0); Mean Corp Hgb Conc 32.4 g/dL (32-36); Mean Corpuscular Volume 93.9 fL (81-99); Mean Platelet Vol. 10.0 fl (6.2-12.0); NRBC Flagged by Analyzer 0 % (0-5); Platelet Count 217 K/mm3 (150-450); RBC Distribution Width CV 13.0 % (11.6-14.6); RBC Distribution Width SD 44.5 fl (35.1-43.9); Red Blood Count 4.11 M/mm3 (4.2-5.4); White Blood Count 7.4 K/mm3 (4.4-11.0)
[2024-08-28 22:29] LABS: Prothrombin Time (Protime)PT. 12.9 SECONDS (11.7-14.9)
[2024-08-28 22:30] LABS: Partial Thromboplast Time 25.7 Seconds (24.1-36.2)
[2024-08-28 22:38] LABS: AST(SGOT) 34 U/L (<=31); Alanine Aminotransfer ALT/SGPT 24 U/L (<=34); Albumin, Serum 4.2 g/dL (3.4-4.8); Alcohol, Blood (Medical)-Serum 137.0 mg/dL (<=10.0); Alkaline Phosphatase 90 U/L (35-104); Anion Gap 14 (5-15); BUN 19 mg/dL (4-19); BUN/Creat Ratio 27.0 RATIO (10-20); Calcium,Total 9.1 mg/dL (7.6-11.0); Carbon Dioxide 23.3 mmol/L (21.0-32.0); Chloride 106 mmol/L (98-108); Estimated Creatinine Clearance 70.64 ml/min (50-250); Globulin 2.8 g/dL (2.2-4.2); Glucose 85 mg/dL (70-99); Potassium 3.5 mmol/L (3.3-5.1)
[2024-08-28] MEDS: Vancomycin HCl 1,250 MG in 0.9% Normal Saline (250mL Bag) 250 ML 167 MG IV (22:44)
[2024-08-28 23:06] LABS: Procalcitonin 0.02 ng/mL (<=0.10)
[2024-08-28 23:36] VITALS: BP 88/56; PULSE 64; RESP 14; O2SAT 99
[2024-08-29 00:09] LABS: Mucous, Urine 0 SEEN /hpf (<or=2+); Red Blood Cells-Urine 0 SEEN /hpf (0-5)
[2024-08-29 00:12] LABS: Color, Urine Yellow (Yellow); Glucose, Dipstick Normal (Normal); Ketone-Dipstick Negative (Negative); Leukocyte Esterase-Dipstick 25 /ul (Negative); Nitrite-Dipstick Negative (Negative); Occult Blood-Urine Negative /ul (Negative); Protein-Dipstick 15 mg/dl (Negative); Specific Gravity, Urine 1.010 (1.002-1.030); Urine Bilirubin Dipstick Negative (Negative)
[2024-08-29 00:41] LABS: Barbiturate Urine NEGATIVE (< 200 ng/mL); Benzodiazepine Urine PRESUMPTIVE POSITIVE (< 200 ng/mL); PCP Urine NEGATIVE (< 25 ng/mL); Squamous Epithelial Cells - UA 0-5 SEEN /hpf (5-10); THC Urine PRESUMPTIVE POSITIVE (< 50 ng/mL)
[2024-08-29 00:51] VITALS: BP 110/70
[2024-08-29] MEDS: 0.9% Normal Saline (1000mL) 1,000 ML 999 ML IV (00:52)
[2024-08-29 01:38] VITALS: BP 112/66; PULSE 70; RESP 18; O2SAT 98
[2024-08-29 02:02] LABS: Reflex Lactate? Y
[2024-08-29 02:45] VITALS: BP 112/64; PULSE 70; RESP 18; TEMP 36.6; O2SAT 98
== END 2024-08-29 02:46 | disposition home or self-care (01) ==
PROVIDERS: Emergency Medicine; Emergency Provider Emergency Medicine; PCP Internal Medicine; Visit Provider Emergency Medicine
DX: R55 Syncope and collapse (principal); E86.0 Dehydration; G89.4 Chronic pain syndrome; R50.9 Fever, unspecified; F10.10 Alcohol abuse, uncomplicated; W19.XXXA Unspecified fall, initial encounter; Y92.89 Other specified places as the place of occurrence of the external cause; E03.9 Hypothyroidism, unspecified; Z79.890 Hormone replacement therapy; J45.909 Unspecified asthma, uncomplicated; Z79.51 Long term (current) use of inhaled steroids; F17.200 Nicotine dependence, unspecified, uncomplicated
CPT/HCPCS: 70450; 71045; 80053; 80307; 81001; 82077; 83605; 84145; 85025; 85610; 85730; 87040; 87077; 87086; 87088; 87631; 93005; 96361; 96365; 96366; 96368; 99285; A4216; J0744

== ENCOUNTER 2024-11-29 13:08 | Outpatient (RCR) | payer MEDICARE, MEDICAID, SELFPAY ==
--- NOTE | 2024-11-29 14:37 | HP.PTEVAL_ITS ---
Patient's Visit Information Visit Information Visit Information: PRISCILLA ARELLANO is a 64 year old F referred to Physical Therapy by Dr. Aston Bowman MD with a diagnosis of Chronic LBP, Chronic shoulder pain. Date of Evaluation: 11/29/24 Physical Therapist: Mitch Mccauley, PT, ATC Visit Plan Frequency: 1x/Week Duration: 1 Week Plan: Pt was assessed for a motorized wheelchair this date. Pt is limited with all mobility at this time secondary to pain and weakness. I is a candidate for a motorized wheelchair at this time secondary to UE/LE weakness and pain Subjective Subjective: Pt reports she has had chronic back pain for greater than 22 years. pt notes she has been on disability throughout this span. Pt notes she had LB surgery to aid with alleviating her pain at the age of 32, but eventually hurt her back again and had to be put on disability. Pt notes LE radiculopathy that extends to the tips of her toes. Pt notes she is able to bath herself and get dressed, but is very limited with all IADLs secondary to her LBP and R shoulder pain. Pt notes she has had many falls in the past, and notes she has had 12 over the past 2 weeks. Pt notes she loses her balance with and without her rollator. Pt denies ever feeling light headed or dizzy, but notes she falls secondary to her LE's giving out. Pt is not on O2. Pt reports she sleeps in her lift chair because her R shoulder is too sore to aid with transferring her. Pt has used a rollator for 5 years or more. Pt notes she tore her rotator cuff from falling and notes she has been told it is non operable at this time. LBP ranges from 9- 10/10. Pt denies any decubitus ulcers at this time. Pt is incontinent at this time. Pt is R hand dominant. Pt gets her meds from a nurse at her facility. Pain LBP: Pain Intensity (Out of 10): 9 Pain Intensity Range: 10 R shoulder pain: Pain Intensity (Out of 10): 9 Pain Intensity Range: 10 Objective Objective: Neuro: B LE sensation is hyposensitive throughout with all light touch. MMT: L UE 4-/5 while R UE 2+/ throughout and limited by pain. B LE MMT 3-/5 throughout and limited by LBP ROM: B LE's are limited with end range ROM in all planes secondary to pain. L UE is WNL. R UE is severely limited in all planes. Sit to stand 2 reps in 30 sec TU min, 8 sec with rollator Goals Goal 1:: NA Rehabilitation Potential Physical Therapy Diagnosis: Pt has difficulty with all mobility and transfers secondary to chronic LBP and R chronic shoulder pain Rehabilitation Potential: Good Anticipated Interventions Patient/Client Instruction: Educate patient on: Condition and Plan of Care For the Purpose of:: To improve self management Text: Thank you for the opportunity to evaluate your patient. For Medicare and Medicare HMO plans, please review the plan of care and approve it. It will need to be FAXED BACK to us at [phone] for Medicare purposes. For Medicare only, by signing this I certify the plan of care. Please let me know if there are questions or concerns regarding this plan of care. Physician Signature: Date:
--- NOTE | 2024-11-29 14:37 | HP.PT.NRP ---
Patient Information Patient Information: PRISCILLA ARELLANO was seen in my office for initial evaluation on 11/29/24. The following Plan of Care was established for this patient: POC Established Initial Frequency: 1x/Week Initial Duration: 1 Week Anticipated Interventions Patient/Client Instruction: Educate patient on: Condition and Plan of Care For the Purpose of:: To improve self management Last Seen Last Seen: This patient was last seen in our office . Pertinent comments regarding their Physical therapy will appear below: Pt was evaluated for a wheelchair at this time. Pt will not be returning for further PT At this point I will be discontinuing this patient from physical therapy. I would be happy to see this patient again in the future if found appropriate by the physician. Thank you! Mitch Mccauley, PT, ATC
== END 2024-11-29 19:00 | disposition home or self-care (01) ==
LOC: PT 13:08
PROVIDERS: PCP Internal Medicine; Referring Provider Internal Medicine; Visit Provider Internal Medicine
DX: M54.50 Low back pain, unspecified (principal); M25.511 Pain in right shoulder; G89.29 Other chronic pain
CPT/HCPCS: 97161